=== PATIENT | male | born 1950 | race Caucasian/White ===

== ENCOUNTER 2020-12-15 13:58 | Outpatient (CLI) | payer MEDICARE, SELFPAY ==
--- NOTE | ~2020-12-15 | US_ITS ---
EXAMINATION: US carotid duplex BI DATE: 12/15/2020 14:30 INDICATION: Carotid stenosis TECHNIQUE: Grayscale, color Doppler, and pulsed Doppler images of the cervical carotid arteries were obtained. The degree of vessel stenosis is placed in one of the following categories: normal, <50%, 5 0-69%, >=70% but less than near-occlusion, near-occlusion, or total occlusion. Note that percent sten osis relative to normal distal artery lumen diameter is indirectly measured from velocity measurement s as described by Caio, et al. Radiology 2003; [id number]. COMPARISON: 05/06/2014 FINDINGS: RIGHT: The right common carotid artery (CCA) peak systolic velocity (PSV) is 85 cm/s. The right internal car otid artery (ICA) PSV is 105 cm/s. The right ICA end-diastolic velocity (EDV) is 24 cm/s. The right I CA/CCA PSV ratio is 1.2. Grayscale and color Doppler images yield an estimate of <50% diameter reduct ion from plaque in the ICA. The external carotid artery (ECA) PSV is 128 cm/s. There is antegrade tom w in the right vertebral artery. LEFT: The left CCA PSV is 116 cm/s. The left ICA PSV is 100 cm/s. The left ICA EDV is 25 cm/s. The left ICA /CCA PSV ratio is 0.9. Grayscale and color Doppler images yield an estimate of <50% diameter reductio n from plaque in the ICA. The ECA PSV is 132 cm/s. There is antegrade flow in the left vertebral nahum ry. IMPRESSION: 1. <50% stenosis in the right internal carotid artery. 2. <50% stenosis in the left internal carotid artery. Reviewed, dictated and finalized at location A.
== END 2020-12-15 13:59 | disposition home or self-care (01) ==
LOC: CHSIMG 14:04
PROVIDERS: PCP Internal Medicine; Visit Provider Internal Medicine
DX: I65.23 Occlusion and stenosis of bilateral carotid arteries (principal)
CPT/HCPCS: 93880

== ENCOUNTER 2021-01-26 08:50 | Outpatient (CLI) | payer MEDICARE, SELFPAY | END 2021-01-26 08:51 | disposition home or self-care (01) | LOC: CHSAUDIO 08:52 | PROVIDERS: PCP Internal Medicine; Visit Provider Otolaryngology | DX: H65.91 Unspecified nonsuppurative otitis media, right ear (principal) | CPT/HCPCS: 92557; 92567 ==

== ENCOUNTER 2022-11-01 07:08 | Outpatient (CLI) | payer MEDICARE, SELFPAY ==
--- NOTE | ~2022-11-01 | US_ITS ---
EXAMINATION: US retroperitoneal duplex ltd DATE: 11/01/2022 07:48 INDICATION: Hypertension. TECHNIQUE: Multiple grayscale, color Doppler, and pulsed Doppler images of the kidneys and renal nahum puma were obtained. COMPARISON: None. FINDINGS: The aorta peak systolic velocity is 81 cm/s. The right renal artery peak systolic velocity is 108 cm/ s in the proximal segment, 129 cm/s in the mid segment, and 78 cm/s in the distal segment. The left r enal artery peak systolic velocity is 81 cm/s in the proximal segment, 68 cm/s in the mid segment, an d 76 cm/s in the distal segment. There are cysts in left kidney measuring up to 3.4 cm. IMPRESSION: 1. No Doppler evidence of renal artery stenosis. Reviewed, dictated and finalized at location A.
== END 2022-11-01 07:09 | disposition home or self-care (01) ==
LOC: CHSIMG 07:09
PROVIDERS: PCP Internal Medicine; Visit Provider Internal Medicine
DX: R94.4 Abnormal results of kidney function studies (principal); I10 Essential (primary) hypertension
CPT/HCPCS: 93976

== ENCOUNTER 2022-11-13 12:03 | Outpatient (CLI) | payer MEDICARE, SELFPAY ==
--- NOTE | ~2022-11-13 | US_ITS ---
EXAMINATION: US retroperitoneal comp DATE: 11/13/2022 12:35 INDICATION: Elevated creatinine TECHNIQUE: Multiple ultrasound grayscale images of the kidneys were obtained. COMPARISON: None. FINDINGS: The right kidney measures 10.0 x 5.0 x 4.4 cm. The left kidney measures 10.4 x 4.3 x 4.9 cm. The kidn eys demonstrate normal echogenicity. 3.5 similar anechoic cyst at the lower pole of the left kidney. There is no hydronephrosis in either kidney. No stones identified. The bladder is normal. Prostatome devaughn measuring 4.8 x 4.5 x 4.2 cm. IMPRESSION: 1. 3.5 cm left renal cyst. Otherwise normal kidneys without hydronephrosis. 2. Prostatomegaly. Reviewed, dictated and finalized at location B.
== END 2022-11-13 12:04 | disposition home or self-care (01) ==
LOC: CHSIMG 12:04
PROVIDERS: PCP Internal Medicine; Visit Provider Internal Medicine
DX: R94.4 Abnormal results of kidney function studies (principal); N28.1 Cyst of kidney, acquired; N40.0 Benign prostatic hyperplasia without lower urinary tract symptoms
CPT/HCPCS: 76770

== ENCOUNTER 2024-01-01 09:33 | Outpatient (CLI) | payer MEDICARE, SELFPAY ==
--- NOTE | ~2024-01-01 | CT_ITS ---
EXAMINATION:CT lung screening DATE: 01/01/2024 10:02 INDICATION: Personal history of nicotine dependence. Smoker who quit 3 years ago with 30 pack year hi story. TECHNIQUE: Computed tomography (CT) of the chest was performed without intravenous contrast. Automate d exposure control and iterative reconstruction technique were employed. The dose-length product (DLP ) was 96.41 mGy-cm. COMPARISON: None. FINDINGS: There is mild scarring at the lung apices. There is mild emphysema. There is mild atelectas is bilaterally. There is mild bronchiectasis in the inferior lungs. There is a 7 mm part solid nodule in right lower lobe. There is a 6 mm nodule in left lower lobe. Calcified right lung nodules and tasha cified right hilar and mediastinal lymph nodes are consistent with old granulomatous disease. No pleu ral effusion. The heart size is normal. There are coronary artery calcifications. No pericardial effu emiliano. There is diffuse hepatic steatosis. There is mild thoracic spondylosis. IMPRESSION: 1. Lung-RADS category 3: Probably benign. Further evaluation is recommended with noncontrast low-dose chest CT in 6 months. Reviewed, dictated and finalized at location A. IMPRESSION: 1. Lung-RADS category 3: Probably benign. Further evaluation is recommended wit h noncontrast low-dose chest CT in 6 months.
== END 2024-01-01 09:34 | disposition home or self-care (01) ==
PROVIDERS: PCP Internal Medicine; Visit Provider Internal Medicine
DX: Z12.2 Encounter for screening for malignant neoplasm of respiratory organs (principal); Z87.891 Personal history of nicotine dependence
CPT/HCPCS: 71271

== ENCOUNTER 2024-01-28 06:54 | Day surgery (SDC) | payer MEDICARE, SELFPAY ==
[2024-01-08 08:29] VITALS: BMI 25.4
[2024-01-11 10:27] VITALS: BMI 23.7
--- NOTE | 2024-01-28 06:49 | P.PNAN_ITS ---
Anes - Initial Pre Proc Eval Procedure: Operation Date: 01/28/24 08:30 Proposed Procedures p Screening Colonoscopy - Arnie Mitchell DO Date/Time: 01/28/24 06:49 Surgeon: Arnie Mitchell DO Pre Op Diagnosis: History of Colon Polyp Patient Data Age: 73 Gender: M Height: 1.78 m Weight: 75 kg Allergies Allergy/AdvReac Type Severity Reaction Status Date / Time shellfish derived Allergy Mild unknown Verified 01/28/24 07:31 Home Medications Medication Instructions Recorded Confirmed Type aspirin 81 mg tablet,delayed 81 mg PO DAILY 10/23/19 01/28/24 History release metformin 500 mg tablet,extended 500 mg PO DAILY 10/23/19 01/28/24 History release 24 hr simvastatin 20 mg tablet 20 mg PO DAILY 10/23/19 01/28/24 History glimepiride 2 mg tablet 2 mg PO DAILY 01/11/24 01/28/24 History losartan 50 mg tablet 50 mg PO DAILY 01/11/24 01/28/24 History multivitamin with minerals-folic 1 tablet PO DAILY 01/11/24 01/28/24 History acid 0.4 mg tablet tamsulosin 0.4 mg capsule 0.4 mg PO DAILY 01/11/24 01/28/24 History Patient hx anesthesia problems: none Family hx anesthesia problems: none Results Review: All pre-operative results and documents have been reviewed as part of the pre- operative evaluation. [facility] Past Medical History Medical History (Updated 01/28/24 @ 08:47 by Arnie Mitchell DO) AAA (abdominal aortic aneurysm) Diabetes type 2, controlled Hyperlipidemia Hypertension Surgical History Surgical History (Updated 01/28/24 @ 06:50 by Shiv Dozier DO) Hx of CABG 2016 Social History Social History (Updated 12/21/20 @ 13:54 by Katt Cervantes) Smoking status: Former smoker Tobacco type: cigarettes Alcohol intake: current Drinks per week: 1 Alcohol use details: 3 per month Substance use: never Substance use type: does not use Living arrangements: with family Spiritual care concerns: No Anes - Eval Final PreProcedure Day of Procedure 01/28/24 06:49 Patient weight: normal Heart: regular rate and rhythm Lungs: clear to auscultation and normal air movement Airway: Mallampati scale class II Neurological: alert and oriented Last oral intake: >/= 8 hours ASA classification: III Emergent: no Anesthetic plan: proceed Anesthesia type and monitoring: general GIVS and standard monitoring Results Review: All pre-operative results and documents have been reviewed as part of the pre- operative evaluation. Informed Consent: The patient's anesthetic plan and its attendant risks and benefits were discussed with the patient/family/POA. Questions were solicited and answers provided to the satisfaction of the patient/family/POA.
[2024-01-28] MEDS: LACTATED RINGERS 1,000 ML 150 ML IV CONT (07:33)
[2024-01-28 07:45] VITALS: BP 169/76; PULSE 58; RESP 18; TEMP 36.7; O2SAT 99
[2024-01-28 07:56] LABS: Glucose Point of Care 107 mg/dl (65-105)
--- NOTE | 2024-01-28 08:46 | PM.IMHP ---
H&P: HPI History of Present Illness Date/Time: 01/28/24 08:46 Chief Complaint: hx of polyps Narrative: 73 yo man presents for colonoscopy. Last done 5 years ago and polyps removed. Denies hematochezia/melena. No fam hx colon cancer. Review of Systems Review of Systems: All systems reviewed & are unremarkable except as noted in HPI and below Constitutional: Constitutional: Denies chills, Denies fever(s), Denies headache(s) and Denies weight loss Eyes: Eyes: Denies change in vision ENT: Denies dizziness, Denies headache(s), Denies neck mass and Denies throat swelling Cardiovascular: Cardiovascular: Denies chest pain, Denies lightheadedness and Denies dyspnea Respiratory: Respiratory: Denies cough, Denies dyspnea and Denies wheezing Gastrointestinal: Gastrointestinal: Denies abdominal pain, Denies change in bowel habits, Denies nausea and Denies vomiting Genitourinary: Genitourinary: Denies hematuria and Denies dysuria Musculoskeletal: Musculoskeletal: Reports as per HPI Integumentary/Breasts: Skin/Breast: Reports as per HPI Neurologic: Denies dizziness and Denies headache(s) Allergic/Immunologic: Allergic/Immunologic: Denies throat swelling and Denies wheezing COUNT INCLUDES THE [facility] Past Medical History Medical History (Updated 01/28/24 @ 08:47 by Arnie Mitchell DO) AAA (abdominal aortic aneurysm) Diabetes type 2, controlled Hyperlipidemia Hypertension Surgical History Surgical History (Updated 01/28/24 @ 06:50 by Shiv Dozier DO) Hx of CABG 2016 Social History Social History (Updated 12/21/20 @ 13:54 by Katt Cervantes) Smoking status: Former smoker Tobacco type: cigarettes Alcohol intake: current Drinks per week: 1 Alcohol use details: 3 per month Substance use: never Substance use type: does not use Living arrangements: with family Spiritual care concerns: No Meds Home Medications and Allergies Home Medications Medication Instructions Recorded Confirmed Type aspirin 81 mg tablet,delayed 81 mg PO DAILY 10/23/19 01/28/24 History release metformin 500 mg tablet,extended 500 mg PO DAILY 10/23/19 01/28/24 History release 24 hr simvastatin 20 mg tablet 20 mg PO DAILY 10/23/19 01/28/24 History glimepiride 2 mg tablet 2 mg PO DAILY 01/11/24 01/28/24 History losartan 50 mg tablet 50 mg PO DAILY 01/11/24 01/28/24 History multivitamin with minerals-folic 1 tablet PO DAILY 01/11/24 01/28/24 History acid 0.4 mg tablet tamsulosin 0.4 mg capsule 0.4 mg PO DAILY 01/11/24 01/28/24 History Allergies Allergy/AdvReac Type Severity Reaction Status Date / Time shellfish derived Allergy Mild unknown Verified 01/28/24 07:31 Vital Signs Vital Signs - 24 hr 01/28/24 07:45 Temperature 98.0 F Pulse Rate 58 L Respiratory Rate 18 Blood Pressure 169/76 H Pulse Oximetry 99 Oxygen Delivery Room Air Exam Const: General: no acute distress and alert Orientation/consciousness: patient oriented x3 HENMT: Head: normocephalic and atraumatic Ears: hearing grossly normal bilaterally Face/Nose/Sinus: Normal nares present Mouth: Yes Normal oral and palatal mucosa present Eyes: Periorbital: periorbital findings normal Sclera: sclerae normal EOM: EOMs intact bilaterally Neck: Neck: normal visual inspection, no lymphadenopathy and trachea midline Chest: Chest palpation & inspection: normal inspection of the chest Resp: Effort & Inspection: normal respiratory effort Auscultation: clear to auscultation bilaterally Cardio: Jugular venous distension: no JVD Rate: regular rate Rhythm: regular rhythm Heart sounds: S1 normal heart sound present and S2 normal heart sound present Peripheral pulses: Peripheral pulses 2+ throughout GI: Inspection: normal to inspection GI Palp: Yes Soft to palpation, No Tenderness to palpation present (GI), No Guarding due to palpation present (GI) and No Rebound tenderness present Percussion: Yes normal to percussion Auscultation: no
[2024-01-28 09:19] VITALS: BP 101/58; PULSE 58; RESP 14; O2SAT 98
[2024-01-28 09:29] VITALS: BP 97/57; PULSE 58; RESP 14; O2SAT 97
[2024-01-28 09:39] VITALS: BP 109/62; PULSE 55; RESP 16; O2SAT 98
--- NOTE | 2024-01-28 11:29 | WPDANESPN ---
Anes - Prog Note Post-Op Date/Time: 01/28/24 11:29 Cardiovascular status: normal Respiratory status: normal Airway patency: baseline Mental status: baseline Post-Op hydration status: normal Vital Signs: Last Vital Signs Temp 36.7 C 01/28/24 07:45 Pulse 55 L 01/28/24 09:39 Resp 16 01/28/24 09:39 BP 109/62 01/28/24 09:39 Pulse Ox 98 01/28/24 09:39 O2 Del Method Room Air 01/28/24 09:39 Pain Score (VAS): 0 I/O: Intake & Output 01/27/24 01/28/24 01/28/24 23:59 07:59 15:59 Intake Total 600 Balance 600 01/28/24 07:51 POC Capillary Glucose 107 H Post-procedural complaints: none Patient Feedback: Patient satisfied with anesthetic care. Other Findings: Patient vital signs back to baseline. Patient denies nausea and vomiting. Patient's pain under control. Patient OK for discharge.
== END 2024-01-28 10:05 | disposition home or self-care (01) ==
PROVIDERS: PCP Internal Medicine; Visit Provider Surgery
PROC: 0DJD8ZZ Inspection of Lower Intestinal Tract, Via Natural or Artificial Opening Endoscopic (ICD-10-PCS; CPT 45378; principal; 2024-01-28 08:30)
DX: Z86.0100 Personal history of colon polyps, unspecified (principal); K57.30 Diverticulosis of large intestine without perforation or abscess without bleeding; K64.8 Other hemorrhoids
CPT/HCPCS: G0105

== ENCOUNTER 2024-01-31 07:18 | Outpatient (CLI) | payer MEDICARE, SELFPAY ==
--- NOTE | ~2024-01-31 | US_ITS ---
EXAMINATION: US renal BI, US retroperitoneal duplex ltd DATE: 01/31/2024 08:00 INDICATION: Chronic kidney disease TECHNIQUE: 1. Multiple grayscale and color Doppler images of the kidneys were obtained. 2. Multiple grayscale and pulsed Doppler images of the aorta and renal arteries were obtained. COMPARISON: None. FINDINGS: Kidneys: The right kidney measures 9.8 x 5.7 x 6.5 cm. The left kidney measures 10.7 x 4.5 x 5.9 cm. The kidne ys demonstrate normal echogenicity. 4.0 cm anechoic cyst at the lower pole of the left kidney. There is no hydronephrosis in either kidney. No stones identified. The bladder is normal. Prostatomegaly m easuring 5.5 x 5.2 x 5.1 cm. Diffuse hepatic steatosis. Renal arteries/vascular: The aorta peak systolic velocity is 49 cm/s. The right renal artery peak systolic velocity is 104 cm/ s in the proximal segment, 97 cm/s in the mid segment, and 72 cm/s in the distal segment. The left re nal artery peak systolic velocity is 68 cm/s in the proximal segment, 68 cm/s in the mid segment, and 42 cm/s in the distal segment. IMPRESSION: 1. 4.0 cm left renal cyst. Otherwise normal kidneys with no hydronephrosis. 2. No Doppler evidence of renal artery stenosis. 3. Prostatomegaly. 4. Hepatic steatosis. Reviewed, dictated and finalized at location A. IMPRESSION: 1. 4.0 cm left renal cyst. Otherwise normal kidneys with no hydronephrosis. 2. No Doppler evidence of renal artery stenosis. 3. Prostatomegaly. 4. Hepatic steatosis.
== END 2024-01-31 07:19 | disposition home or self-care (01) ==
LOC: CHSIMG 07:20
PROVIDERS: PCP Internal Medicine; Visit Provider Internal Medicine
DX: N18.30 Chronic kidney disease, stage 3 unspecified (principal); I70.1 Atherosclerosis of renal artery; N28.1 Cyst of kidney, acquired; N40.0 Benign prostatic hyperplasia without lower urinary tract symptoms; K76.0 Fatty (change of) liver, not elsewhere classified
CPT/HCPCS: 76775; 93976

== ENCOUNTER 2024-08-20 09:18 | Outpatient (CLI) | payer MEDICARE, SELFPAY ==
--- NOTE | ~2024-08-20 | US_ITS ---
Procedure: Duplex Doppler examination of the bilateral carotids. Indication: Carotid stenosis Technique: Real time, color-flow and pulse wave Doppler examination of the bilateral carotids was performed. Findings: Carlson scale ultrasonography of the right neck demonstrated moderate to advanced plaque at the carotid bifurcation and proximal right internal carotid artery. There was demonstration of normal color-flow and Doppler waveforms within the right common, internal and external carotid arteries. The peak systo lic velocities in the right common, internal and external carotid arteries were demonstrated to be 94 cm/sec, 101 cm/sec and 156 cm/sec respectively. The right ICA/CCA ratio was 1.1.The proximal right i nternal carotid artery demonstrates 0% stenosis relative to the normal distal artery lumen diameter. Carlson scale sonography of the left neck demonstrated moderate plaque at the left carotid bifurcation. There was demonstration of normal color-flow and wave forms within the left common, internal and exte rnal carotid arteries. The peak systolic velocities in the left common, internal and external carotid arteries were demonstrated to be 105cm/sec, 96 cm/sec and 133 cm/sec respectively. The left ICA/CCA ratio was 0.9. The proximal left internal carotid artery demonstrates 0% stenosis relative to the nor mal distal artery lumen diameter. There was antegrade flow demonstrated in the bilateral vertebral arteries. Impression: No hemodynamically significant stenosis of the bilateral internal carotid arteries. Antegrade flow in the bilateral vertebral arteries. Note: The methodology used is an indirect measurement validated against a direct method (such as the NASCET criteria) that compares diameters at the stenosis to the distal ICA. Reviewed, dictated and finalized at location . Impression: No hemodynamically significant stenosis of the bilateral internal carotid arter ies. Antegrade flow in the bilateral vertebral arteries. Note: The methodology used is an indirect measurement validated against a direct meth od (such as the NASCET criteria) that compares diameters at the stenosis to the distal ICA.
--- OUTSIDE RECORDS SUMMARY | 2024-08-20 09:46 | XMS_ITS | Clinical Summary ---
Author Organization [facility] Address [address] [place] [address] Care Team Providers Care Snack Bar Attendant Name Role Phone Li Tay MD Primary Care Provider + [phone] Allergies Active Allergy Reactions Criticality Noted Date Comments Prochlorperazine Other (See comments) Low Reaction: DIARRHEA;, Shellfish Nausea And Vomiting 10/21/2015 Shellfish Containing Products Diarrhea,Vomiting Medium 12/25/2017 Medications aspirin 81 mg tablet Active tamsulosin (FLOMAX) 0.4 mg extended release capsule Take 1 capsule (0.4 mg total) by mouth daily 3 Active amLODIPine (NORVASC) 5 mg tablet Take 1 tablet (5 mg total) by mouth daily 5 Active Tradjenta 5 mg tablet Take 1 tablet (5 mg total) by mouth daily 5 Active cyanocobalamin (Vitamin B-12) 1,000 mcg tabletIndicatio ns:Prevention of Vitamin B12 Deficiency Take 1 tablet (1,000 mcg total) by mouth daily Active multivitamin tabletIndicatio ns:Vitamin Deficiency Prevention Take 1 tablet by mouth Active atorvastatin (Lipitor) 40 mg tablet Take 1 tablet (40 mg total) by mouth nightly 90 tablet 3 5 Active glimepiride (AMARYL) 4 mg tabletIndicatio ns:type 2 diabetes mellitus Take 2 tablets (8 mg total) by mouth daily before breakfast Active Hospital, Clinic, or Other Facility Administered Medication Ordered Dose Route Frequency Start Date End Date Status perflutren protein-a (OPTISON) 3 mL in sodium chloride 0.9% 8 mL syringe 1 - 8 mL IV Once in imaging 06/12/2024 Active Active Problems Problem Noted Date Diagnosed Date Atherosclerosis of choctaw ar teries of extremities with intermittent claudication, left leg 06/19/2023 Encounter for surgical after care following surgery on the circulatory system 05/30/2016 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/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 12/17/2015 PVD (peripheral vascular disease) 10/21/2015 Encounters Date Type Department Care Team Description 07/01/2024 11:15 AM CDT Office Visit [facility] Vascular Surgery [address] [place] [address] 3 [address] [place] [id number] Idris Perez NP Encounter for surgical aftercare following surgery on the circulatory system (Primary Dx) 07/01/2024 10:15 AM CDT Ancillary Procedure [facility] Vascular Lab Vascular Surgery [address] [place] [address] 3, [address] [place] [id number] Atherosclerosis of choctaw arteries of extremities with intermittent claudication, left leg 06/12/2024 3:00 PM SPINNING MULE TENDER Ancillary Procedure [facility] [address] [place] [address] 3 [address] [place] [id number] Hypertension, unspecified type 06/12/2024 1:30 PM SPINNING MULE TENDER Office Visit [facility] Cardiology [address] [place] [address] Office [facility] [address] [place] [id number] Wellington Linares MD Coronary artery disease involving choctaw coronary artery of choctaw heart without angina pectoris (Primary Dx); PVD (peripheral vascular disease); Hypertension, unspecified type; Hyperlipidemia, unspecified hyperlipidemia type 06/12/2024 Results Follow-Up [facility] Cardiology [address] [place] [address] 3 [address] [place] [id number] Wellington Linares MD from Last 3 Months Medical History Medical History Date Comments Diabetes mellitus (HCC) Family History Medical History Relation Name Comments No Known Problems Father No Known Problems Mother Relation Name Status Comments Father Mother Social History Tobacco Use Types Packs/Day Years Used Date Smoking Tobacco: Former Smokeless Tobacco: Never Tobacco Cessation:Counseling Given: Not Answered Alcohol Use Standard Drinks/Week Comments Not Currently 0 (1 standard drink = 0.6 oz pur e alcohol) AUDIT-C Answer Date Recorded Q1: How often do you have a drink containing alc ohol? Monthly or less 01/05/2023 Average Number of Drinks Not on file 023 Frequency of Binge Drinking Not on file 12/16 Sex and Gender Information Value Date Recorded Sex Assigned at Not on file Legal Sex Male 8:16 AM SPINNING MULE TENDER Gender Identity Not on file Sexual Orientation Straight 12/31/2018 10 :17 AM CDT Obstetrics History Last Filed Vital Signs Vital Sign Reading Time Taken Comments Blood Pressure 166/78 07/01/2024 10:49 AM CDT Pulse 66 07/01/2024 10:49 AM CDT Temperature 36.9 C (98.5 F) 06/19/2023 11:28 AM SPINNING MULE TENDER Respiratory Rate - - Oxygen Saturation 100% 07/01/2024 10:49 AM CDT Inhaled Oxygen Concentration - - Weight 76.2 kg (168 lb) 07/01/2024 10:49 AM CDT Height 177.8 cm (5' 10 ) 07/01/2024 10:49 AM CDT Body Mass Index 24.11 07/01/2024 10:49 AM CDT Plan of Treatment Health Maintenance Due Date Last Done Comments Colon Cancer Screening-Colonoscopy 1950 Depression Screening 1950 Fall Risk Assessment 1950 Hepatitis C Screening 1950 Hepatitis B Screening 1968 Well Visit 65+ 2015 Covid-19 Vaccine (2023-2 5 season) 2023 06/25/2020, 06/04/2020 Influenza Vaccine (Season Ended) 2024 01/19/2021, 01/15/2020, 12/25/2018, Additional history exists DTaP/Tdap/Td Vaccine (2 - Td or Tdap) 07/26/2025 07/27/2015 Abdominal Aortic Aneurysm (A AA) Screen Completed 05/18/2016, 05/18/2016, 05/05/2016, Additional history exists Colon Cancer Screening-CT Colonography Discontinued 05/19/2016 Colon Cancer Screening-DNA Stool Discontinued 05/19/19 Colon Cancer Screening-FIT Discontinued 05/19/2016 Colon Cancer Screening-Sigmoidoscopy Discontinued 05/19/2016 Pneumococcal vaccine 65+ Completed 11/30/2017, 01/15 Zoster Vaccine Completed 04/19/2018, 11/14, 07/27/2015 Procedures Procedure Name Priority Date/Time Associated Diagnosis Comments COPY(IES) SENT TO: Routine 08/05/2024 9: 02 AM CDT LIPID PANEL Routine 08/05/2024 9:02 AM CDT Hyperlipidemia, unspecified hyperlipidemia type US ARTERIAL DOPPLER LOWER EXTREMITY BILATERAL Schedule Routine, Read Routine (OP Routine) 07/01/2024 10:50 AM CDT Atherosclerosis of choctaw arteries of extremities with intermittent claudication, left leg TRANSTHORACIC ECHO (TTE) COMPLETE W DOPPLER/CF WO CONTRAST Routine 06/12/2024 3:16 PM SPINNING MULE TENDER Hypertension, unspecified type ECG 12-LEAD Routine 06/12/2024 1:07 PM SPINNING MULE TENDER PVD (peripheral vascular disease) FLEXIBLE SIGMOIDOSCOPY REPORT 05/19/2016 CTA ABDOMINAL AORTA AND BILATERAL ILIOFEMORAL RUNOFF Routine 01/03/2016 11:59 AM CDT from Last 3 Months or Most Recently Relevant to Health Maintenance Results * COPY(IES) SENT TO: (08/05/2024 9:02 AM CDT) COPY(IES) SENT TO: [facility] Comment: [place] [address] [place] [address] 08/05/2024 9:02 AM CDT 08/05/2024 9:03 AM CDT Narrative [facility] - 08/06/2024 3:56 AM CDT FASTING:YES FASTING: YES Wellington Linares MD LAB BLOOD ORDERABLES Final R esult [facility] * (ABNORMAL) Lipid panel (08/05/2024 9:02 AM CDT) Pathologist [facility] Cholesterol 115 <200 mg/dL [facility] HDL 27(L) > OR = 40 mg/dL [facility] Triglycerides 149 <150 mg/dL [facility] LDL 65 mg/dL (calc) [facility] Comment: Reference range: <100 Desirable range <100 mg/dL for primary prevention; <70 mg/dL for patients with CHD or diabetic patients with > or = 2 CHD risk factors. LDL-C is now calculated using the Maxim-Roderick calculation, which is a validated novel method providing better accuracy than the Friedewald equation in the estimation of LDL-C. Maxim SS et al. KUSHAL. 2013;310(19): 1758-2279 (http://education.[employer].VideoMining/faq/UYF287) Chol/HDL ratio 4.3 <5.0 (calc) [facility] Non-HDL, (LDL+VLDL) 88 <130 mg/dL (calc) [facility] Comment: For patients with diabetes plus 1 major ASCVD risk factor, treating to a non-HDL-C goal of <100 mg/dL (LDL-C of <70 mg/dL) is considered a therapeutic option. Blood 08/05/2024 9:02 AM CDT 08/05/2024 9:03 AM CDT Narrative [facility] - 08/06/2024 3:56 AM CDT FASTING:YES FASTING: YES Wellington Linares MD LAB BLOOD ORDERABLES Final R esult [facility] [id number] [place] [id number] * US Arterial Doppler Lower Extremity Bilateral (07/01/2024 10:50 AM CDT) Anatomical Region Laterality Modality Vascular Bilateral Ultrasound 07/01/2024 10:1 6 AM CDT Narrative 07/01/2024 1:44 PM CDT [facility] - Department of Vascular Surgery, Vascular Laboratory [address] [place], [place] [id number] Lower Extremity Arterial Doppler Report Patient Name: RENAE MENDES : 1950 Study Date: 07/01/2024 10:16:00 AM Gender: M Tech: Nuzhat Martinez RVT Location: [facility] Provider: IDRIS PEREZ Quality: Adequate Order Provider: IDRIS PEREZ PROCEDURES: Arterial Report: Bilateral lower extremity arterial Doppler exam at rest. INDICATIONS: I70.212 Atherosclerosis of choctaw arteries of extremities with intermittent claudication, left leg. MEASUREMENTS: Right Value Units Left Value Units Rt Brachial Pressure 178 mmHg Lt Brachial Pressure 181 mmHg Rt PIPE BLANKS CUT OFF SAW OPERATOR Pressure 96 mmHg Lt PIPE BLANKS CUT OFF SAW OPERATOR Pressure 102 mmHg Rt DPA Pressure 86 mmHg Lt DPA Pressure 95 mmHg Rt 1st Digit Pressure 81 mmHg Lt 1st Digit Pressure 91 mmHg Rt PT REED Resting 0.53 Lt PT REED Resting 0.56 Rt AT REED Resting 0.48 Lt AT REED Resting 0.52 Rt Digit/Arm Index 0.45 Lt Digit/Arm Index 0.5 Right Value Units Left Value Units FINDINGS: Performing Commercial Attorney: Nuzhat Martinez RVT. Right Common Femoral Artery Analysis: The common femoral artery waveform is multiphasic. Right Popliteal Artery Analysis: The popliteal waveform is monophasic. Right Posterior Tibial Artery Analysis: The posterior tibial waveform is monophasic. Right Anterior Tibial Artery Analysis: The anterior tibial waveform is monophasic. Left Common Femoral Artery Analysis: The common femoral artery waveform is multiphasic. Left Popliteal Artery Analysis: The popliteal waveform is multiphasic. Left Posterior Tibial Artery Analysis: The posterior tibial waveform is monophasic. Left Anterior Tibial Artery Analysis: The anterior tibial waveform is monophasic. CONCLUSIONS: 1. The above listed Ankle/Brachial Indicies at rest are consistent with moderate peripheral arterial disease - claudication, bilaterally (for reference, claudication range is 0.50 -0.89). 2. Bilateral Digit/Arm Indices are abnormal (for reference, abnormal ALAINA is <0.6). 3. There is evidence of right leg arterial insufficiency at the level of femoral-popliteal arteries and infrapopliteal arteries. 4. There is evidence of left leg arterial insufficiency at the level of infrapopliteal arteries. HISTORY: PAD, HTN, CHF, Former smoker - PREVIOUS STUDIES: Previous study on 05/23/22 R= 1.22; L= 1.26 - DISCLAIMER: The study images and the final report will be retained in the patient chart by the Vascular Laboratory for the legally required time period. This chart constitutes the legal record of any testing performed. ATTESTATION: I have reviewed and interpreted the pertinent images and measurements of this study. I attest to the conclusions in the final report that is provided above. Electronically Signed By: Ana Lilia Sanz MD [facility] [phone] 07/01/2024 1:10:30 PM CDT Procedure Note Ana Lilia Sanz MD - 07/01/2024 [facility] - Department of Vascular Surgery,Vascular Laboratory [address] [place], [place] [id number] Lower Extremity Arterial Doppler Report Patient Name: RENAE MENDES : 1950 Study Date: 07/01/2024 10:16:00 AM Gender: M Tech: Nuzhat Martinez Lizeth Location: [facility] Provider: IDRIS PEREZ Quality: Adequate Order Provider: IDRIS PEREZ PROCEDURES: Arterial Report: Bilateral lower extremity arterial Doppler exam at rest. INDICATIONS: I70.212 Atherosclerosis of choctaw arteries of extremities withintermittent claudication, left leg. MEASUREMENTS: Right Value Units Left Value Units Rt Brachial Pressure 178 mmHg Lt Brachial Pressure 181 mmHg Rt PIPE BLANKS CUT OFF SAW OPERATOR Pressure 96 mmHg Lt PIPE BLANKS CUT OFF SAW OPERATOR Pressure 102 mmHg Rt DPA Pressure 86 mmHg Lt DPA Pressure 95 mmHg Rt 1st Digit Pressure 81 mmHg Lt 1st Digit Pressure 91 mmHg Rt PT REED Resting 0.53 Lt PT REED Resting 0.56 Rt AT REED Resting 0.48 Lt AT REED Resting 0.52 Rt Digit/Arm Index 0.45 Lt Digit/Arm Index 0.5 Right Value Units Left Value Units FINDINGS: Performing Commercial Attorney: Nuzhat Martinez RVT. Right Common Femoral Artery Analysis: The common femoral artery waveform is multiphasic. Right Popliteal Artery Analysis: The popliteal waveform is monophasic. Right Posterior Tibial Artery Analysis: The posterior tibial waveform is monophasic. Right Anterior Tibial Artery Analysis: The anterior tibial waveform is monophasic. Left Common Femoral Artery Analysis: The common femoral artery waveform is multiphasic. Left Popliteal Artery Analysis: The popliteal waveform is multiphasic. Left Posterior Tibial Artery Analysis: The posterior tibial waveform is monophasic. Left Anterior Tibial Artery Analysis: The anterior tibial waveform is monophasic. CONCLUSIONS: 1. The above listed Ankle/Brachial Indicies at rest are consistent withmoderate peripheral arterial disease - claudication, bilaterally (for reference,claudication range is 0.50 -0.89). 2. Bilateral Digit/Arm Indices are abnormal (for reference, abnormal DAIis <0.6). 3. There is evidence of right leg arterial insufficiency at the level of femoral-popliteal arteries and infrapopliteal arteries. 4. There is evidence of left leg arterial insufficiency at the level ofinfrapopliteal arteries. HISTORY: PAD, HTN, CHF, Former smoker - PREVIOUS STUDIES: Previous study on 05/23/22 R= 1.22; L= 1.26 - DISCLAIMER: The study images and the final report will be retained in the patientchart by the Vascular Laboratory for the legally required time period. This chartconstitutes the legal record of any testing performed. ATTESTATION: I have reviewed and interpreted the pertinent images and measurements ofthis study. I attest to the conclusions in the final report that is provided above. Electronically Signed By: Ana Lilia Sanz MD [facility] [phone] 07/01/2024 1:10:30 PM CDT us Idris Perez NP IMG US PROCEDURES Final Result * TRANSTHORACIC ECHO (TTE) COMPLETE W DOPPLER/CF WO CONTRAST (06/12/2024 3:16 PM SPINNING MULE TENDER) Anatomical Region Laterality Modality Ultrasound 06/12/2024 2:48 PM SPINNING MULE TENDER Narrative 06/13/2024 8:50 AM SPINNING MULE TENDER [facility] Cardiac Diagnostic Lab [address] , [address] [place] [address] Transthoracic Echocardiographic Report Patient Name: RENAE MENDES : 1950 (74y 1m) Gender: M Study Date: 06/12/2024 14:48:46 Ht(Inch): 70 Wt(Lb): 167.99 BSA: 1.94 Commercial Attorney: Tahira Cervantes RDCS, RCCS Location: [facility] Order Provider: MIKWELLINGTON NAPOLES BMI: 24.1 Quality: The study images were of technically good quality. Ref Provider: WELLINGTON LINARES PROCEDURES: Echocardiographic Report: ([id number]) Transthoracic complete echo, 2D, spectral and tissue Doppler, color flow Doppler, M-mode. Additional Procedures: Myocardial strain imaging was performed. INDICATIONS: I10 Essential (primary) hypertension. FINDINGS: Left Ventricle: Normal left ventricular size based on volume index. Normal left ventricular systolic function. The Ejection Fraction (Bynum's) is measured at 60 %. Left ventricular diastolic parameters are consistent with Grade I diastolic dysfunction (normal LA pressure). The average global longitudinal strain rate is abnormal. The LV global strain is: -14.8 %. No left ventricular thrombus visualized. Right Ventricle: Normal right ventricular size. Normal right ventricular systolic function. Left Atrium: The left atrium is normal in size. Right Atrium: The right atrium is normal in size. Mitral Valve: There is moderate mitral valve regurgitation. No stenosis present. MV Structure Abnormalities: Mitral valve leaflets appear mildly thickened. Aortic Valve: Trileaflet aortic valve. The aortic cusps appear mildly thickened with more diffuse thickening of the non coronary cusp. No aortic regurgitation seen. No aortic valve stenosis. The mean transaortic gradient is 3.64 mmHg. The aortic valve area by the continuity equation (using VTI) is 2.64 cm2. Tricuspid Valve: The tricuspid valve demonstrates normal leaflet structure. There is mild tricuspid regurgitation. Normal estimated pulmonary artery systolic pressure. No tricuspid valve stenosis. Pulmonic Valve: The pulmonic valve demonstrates normal leaflet structure. No evidence of pulmonic regurgitation. No pulmonic valve stenosis present. Pericardium: Normal pericardium without evidence of pericardial effusion. Aorta: The aortic root is normal in size. The aortic root is normal in size when indexed. Rhythm: The rhythm during the study was normal sinus rhythm. CONCLUSIONS: 1. Normal left ventricular size based on volume index. Normal left ventricular systolic function. The Ejection Fraction (Bynum's) is measured at 60 %. Left ventricular diastolic parameters are consistent with Grade I diastolic dysfunction (normal LA pressure). The average global longitudinal strain rate is abnormal. The LV global strain is: -14.8 %. No left ventricular thrombus visualized. 2. Normal right ventricular size. Normal right ventricular systolic function. 3. Normal biatrial size. 4. Nonspecific thickening of the mitral valve with no evidence for mitral stenosis. Moderate mitral insufficiency. 5. Nonspecific thickening of the aortic valve with no stenosis or insufficiency. 6. Mild tricuspid insufficiency with normal estimated pulmonary artery systolic pressure. 7. Normal pulmonic valve. 8. No pericardial effusion. 9. Normal aortic root when indexed to body surface area. MEASUREMENTS: 2D/MM Value Range Doppler Value Range LVIDd 2D 4.77 cm [ 4.20 - 5.80 ] AV Peak Deonte 1.42 m/s [ 1.00 - 1.70 ] LVIDs 2D 3.46 cm [ 2.50 - 4.00 ] AV Peak PG 8.07 IVSd 2D 1.24 cm [ 0.60 - 1.00 ] AV Mean PG 3.64 mmHg LVPWd 2D 1.19 cm [ 0.60 - 1.00 ] AV VTI 26.98 cm LV Thickness Ratio 1.04 LVOT Peak Deonte 1.28 m/s [ 0.70 - 1.10 ] LV FS 2D 27.51 % [ 25.00 - 43.00 ] LVOT Peak PG 6.55 LV Mass 2D 224.32 g LVOT Mean PG 2.55 mmHg LV Mass Index 2D 115.63 g/m2 LVOT VTI 22.02 cm RWT 0.50 LVOT Diam 2.03 cm EDV Mod BP 121.33 ml [ 62.00 - 150.00 ] DOT VTI 2.64 cm2 LV EDV Index 62.54 ml/m2 LVOT/AV VTI 0.82 - Dimensionless index (DVI) ESV Mod BP 48.46 ml [ 21.00 - 61.00 ] MV E Peak Deonte 0.62 m/s [ 0.60 - 1.30 ] EF Mod BP 60 % [ 52 - 72 ] MV A Peak Deonte 0.78 m/s [ 1.00 - 1.20 ] LV GLS -14.8 % [ -18.0 - -16.0 ] MV E/A 0.80 ratio [ 0.80 - 1.50 ] LA Length 2C 4.78 cm MV Peak Deonte 0.53 m/s LA Length 4C 4.79 cm MV Peak PG 1.12 LA Volume BP 43.24 ml MV Mean PG 0.41 mmHg LA Volume Index 22.29 ml/m2 [ 16.00 - 34.00 ] MV VTI 14.93 cm MV Annulus 2D 2.77 cm MV Decel Time 222.11 msec [ 104.00 - 258.00 ] RV Base Dimen 2D 3.5 cm [ 2.5 - 4.2 ] Med E` Deonte 6.34 cm/sec [ 8.00 - 15.00 ] TAPSE 1.78 cm [ 1.71 - 5.00 ] Lat E` Deonte 9.21 cm/sec [ 10.00 - 15.00 ] RA Volume 29.03 ml Average E/E` 7.97 RA Volume Index 14.96 ml/m2 RV S` 9.56 cm/sec AoR Diam 2D 3.38 cm [ 3.10 - 3.70 ] TR Peak Deonte 2.54 m/s [ 1.00 - 2.80 ] Ao Root Index 1.74 cm/m2 [ 1.00 - 2.00 ] TR Peak PG 25.8 PV Peak Deonte 1.24 m/s [ 0.40 - 0.80 ] PV Peak PG 6.15 - ATTESTATION: I have reviewed and interpreted the pertinent images and measurements of this study. I attest to the conclusions in the final report that is provided above. DISCLAIMER: The study images and the final report will be retained in the patient chart by the Echo Laboratory for the legally required time period. This chart constitutes the legal record of any testing performed. Electronically Signed By: Wellington Linares MD 06/13/2024 08:49:56 SPINNING MULE TENDER Electronically Signed By: Wellington Linares MD 06/13/2024 08:49:56 SPINNING MULE TENDER Procedure Note Wellington Linares MD - 06/13/2024 [facility] Cardiac Diagnostic Lab [address] , [address] [place] [address] Transthoracic Echocardiographic Report Patient Name: RENAE MENDES : 1950 (74y 1m) Gender: M Study Date: 06/12/2024 14:48:46 Ht(Inch): 70 Wt(Lb): 167.99 BSA: 1.94 Commercial Attorney: Tahira Cervantes, RD, [facility] Location: [facility] Order Provider:WELLINGTON LINARES BMI: 24.1 Quality: The study images were of technicallygood quality. Ref Provider: WELLINGTON LINARES PROCEDURES: Echocardiographic Report: ([id number]) Transthoracic complete echo, 2D,spectral and tissue Doppler, color flow Doppler, M-mode. Additional Procedures: Myocardial strain imaging was performed. INDICATIONS: I10 Essential (primary) hypertension. FINDINGS: Left Ventricle: Normal left ventricular size based on volume index. Normalleft ventricular systolic function. The Ejection Fraction (Bynum's) ismeasured at 60 %. Left ventricular diastolic parameters are consistent with Grade Idiastolic dysfunction (normal LA pressure). The average global longitudinal strain rate isabnormal. The LV global strain is: -14.8 %. No left ventricular thrombus visualized. Right Ventricle: Normal right ventricular size. Normal right ventricularsystolic function. Left Atrium: The left atrium is normal in size. Right Atrium: The right atrium is normal in size. Mitral Valve: There is moderate mitral valve regurgitation. No stenosispresent. MV Structure Abnormalities: Mitral valve leaflets appear mildly thickened. Aortic Valve: Trileaflet aortic valve. The aortic cusps appear mildlythickened with more diffuse thickening of the non coronary cusp. No aortic regurgitation seen.No aortic valve stenosis. The mean transaortic gradient is 3.64 mmHg. The aorticvalve area by the continuity equation (using VTI) is 2.64 cm2. Tricuspid Valve: The tricuspid valve demonstrates normal leafletstructure. There is mild tricuspid regurgitation. Normal estimated pulmonary artery systolicpressure. No tricuspid valve stenosis. Pulmonic Valve: The pulmonic valve demonstrates normal leaflet structure.No evidence of pulmonic regurgitation. No pulmonic valve stenosis present. Pericardium: Normal pericardium without evidence of pericardialeffusion. Aorta: The aortic root is normal in size. The aortic root is normal insize when indexed. Rhythm: The rhythm during the study was normal sinus rhythm. CONCLUSIONS: 1. Normal left ventricular size based on volume index. Normal leftventricular systolic function. The Ejection Fraction (Bynum's) is measured at 60 %. Leftventricular diastolic parameters are consistent with Grade I diastolic dysfunction(normal LA pressure). The average global longitudinal strain rate is abnormal. The LVglobal strain is: -14.8 %. No left ventricular thrombus visualized. 2. Normal right ventricular size. Normal right ventricular systolicfunction. 3. Normal biatrial size. 4. Nonspecific thickening of the mitral valve with no evidence for mitralstenosis. Moderate mitral insufficiency. 5. Nonspecific thickening of the aortic valve with no stenosis orinsufficiency. 6. Mild tricuspid insufficiency with normal estimated pulmonary arterysystolic pressure. 7. Normal pulmonic valve. 8. No pericardial effusion. 9. Normal aortic root when indexed to body surface area. MEASUREMENTS: 2D/MM Value Range DopplerValue Range LVIDd 2D 4.77 cm [ 4.20 - 5.80 ] AV Peak Vel1.42 m/s [ 1.00 - 1.70 ] LVIDs 2D 3.46 cm [ 2.50 - 4.00 ] AV Peak PG8.07 IVSd 2D 1.24 cm [ 0.60 - 1.00 ] AV Mean PG3.64 mmHg LVPWd 2D 1.19 cm [ 0.60 - 1.00 ] AV VTI26.98 cm LV Thickness Ratio 1.04 LVOT Peak Vel1.28 m/s [ 0.70 - 1.10 ] LV FS 2D 27.51 % [ 25.00 - 43.00 ] LVOT Peak PG6.55 LV Mass 2D 224.32 g LVOT Mean PG2.55 mmHg LV Mass Index 2D 115.63 g/m2 LVOT VTI22.02 cm RWT 0.50 LVOT Diam2.03 cm EDV Mod BP 121.33 ml [ 62.00 - 150.00 ] DOT VTI2.64 cm2 LV EDV Index 62.54 ml/m2 LVOT/AV VTI0.82 - Dimensionless index (DVI) ESV Mod BP 48.46 ml [ 21.00 - 61.00 ] MV E Peak Vel0.62 m/s [ 0.60 - 1.30 ] EF Mod BP 60 % [ 52 - 72 ] MV A Peak Vel0.78 m/s [ 1.00 - 1.20 ] LV GLS -14.8 % [ -18.0 - -16.0 ] MV E/A0.80 ratio [ 0.80 - 1.50 ] LA Length 2C 4.78 cm MV Peak Vel0.53 m/s LA Length 4C 4.79 cm MV Peak PG1.12 LA Volume BP 43.24 ml MV Mean PG0.41 mmHg LA Volume Index 22.29 ml/m2 [ 16.00 - 34.00 ] MV VTI14.93 cm MV Annulus 2D 2.77 cm MV Decel Bigo832.11 msec [ 104.00 - 258.00 ] RV Base Dimen 2D 3.5 cm [ 2.5 - 4.2 ] Med E` Vel6.34 cm/sec [ 8.00 - 15.00 ] TAPSE 1.78 cm [ 1.71 - 5.00 ] Lat E` Vel9.21 cm/sec [ 10.00 - 15.00 ] RA Volume 29.03 ml Average E/E`7.97 RA Volume Index 14.96 ml/m2 RV S`9.56 cm/sec AoR Diam 2D 3.38 cm [ 3.10 - 3.70 ] TR Peak Vel2.54 m/s [ 1.00 - 2.80 ] Ao Root Index 1.74 cm/m2 [ 1.00 - 2.00 ] TR Peak PG25.8 PV Peak Deonte 1.24 m/s [ 0.40 - 0.80 ] PV Peak PG 6.15 - ATTESTATION: I have reviewed and interpreted the pertinent images and measurements ofthis study. I attest to the conclusions in the final report that is provided above. DISCLAIMER: The study images and the final report will be retained in the patientchart by the [facility] for the legally required time period. This chart constitutesthe legal record of any testing performed. Electronically Signed By: Wellington Linares MD 06/13/2024 08:49:56 SPINNING MULE TENDER Electronically Signed By: Wellington Linares MD 06/13/2024 08:49:56 SPINNING MULE TENDER us Wellington Linares MD CV ECHO PROCEDURES Final Res ult * ECG 12 lead (06/12/2024 1:07 PM SPINNING MULE TENDER) Wellington Linares MD ECG ORDERABLES Final Result * FLEXIBLE SIGMOIDOSCOPY REPORT (05/19/2016) Anatomical Region Laterality Modality Other Narrative 05/19/2016 Ordered by an unspecified provider. Natalya Provider GI PROCEDURE ORDERABLES F inal Result * CTA Abdominal Aorta And Bilateral Iliofemoral Runoff W WO Contrast (01/03/2016 11:59 AM CDT) Anatomical Region Laterality Modality Body Bilateral Computed Tomogra phy 01/03/2016 11:5 9 AM CDT Narrative 01/03/2016 3:40 PM CDT LILY LANDAVERDE M.D. ERROL MARTINEZ MD FINAL REPORT The radiology attending physician has personally reviewed this study, and has reviewed and/or edited this written report and agrees with it. ACC# Date Time Exam [id number] Jan 03, 2016 11:59:[address] Angio Abd & AIF wwo con EXAMINATION: CT ANGIOGRAPHY OF THE ABDOMEN, PELVIS, AND LOWER EXTREMITIES WITH CONTRAST HISTORY: 65-year-old man with abdominal aortic aneurysm, nonruptured. Intermittent, claudication TECHNIQUE: CT angiography of the abdomen, pelvis, and lower extremities performed following uneventful intravenous administration of Optiray-350. Vascular 3D images were generated on a dedicated workstation and also reviewed. FINDINGS: No prior CT angiography for comparison. VASCULAR FINDINGS: Abdominal Aorta and Branches: Celiac axis: no significant stenosis SMA: no significant stenosis CÉSAR: Patent. Arises from the superior margin of the aneurysm described below. Right renal vessels: no significant stenosis Left renal vessels: no significant stenosis Infrarenal aorta: Infrarenal abdominal aortic aneurysm described in detail below. Pelvic Vessels: R. Common iliac artery: no significant stenosis R. External iliac artery: no significant stenosis R. Internal iliac artery: no significant stenosis L. 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 External iliac artery: no significant stenosis L. Internal iliac artery: Opacified by retrograde flow from collaterals. Femorofemoral bypass graft is completely occluded. Right Lower Extremity: R. Common femoral artery: no significant stenosis R. Profunda femoris artery: no significant stenosis R. SFA: Multifocal moderate stenosis and calcification R. Popliteal artery: no significant stenosis R. Anterior tibial artery: no significant stenosis R. Tibioperoneal trunk: no significant stenosis R. Posterior tibial artery: no significant stenosis R. Peroneal artery: no significant stenosis R. Dorsalis pedis artery: no significant stenosis R. Plantar artery: no significant stenosis Left Lower Extremity: L. Common femoral artery: Chronic total occlusion L. Profunda femoris artery: no significant stenosis L. SFA: Reconstituted at its origin by collateral flow. Multifocal moderate stenosis and calcification. L. Popliteal artery: no significant stenosis L. Anterior tibial artery: no significant stenosis L. Tibioperoneal trunk: no significant stenosis L. Posterior tibial artery: Becomes occluded in the midcalf L. Peroneal artery: no significant stenosis L. Dorsalis pedis artery: no significant stenosis L. Plantar artery: no significant stenosis Vascular measurements: Aortic diameter at proximal implantation site: 21 mm AP by 21 mm waakp-md-evih Aortic diameter 10mm inferior to proximal implantation site: 22 mm AP by 22 mm gatlh-rw-lksx Aortic diameter 15mm inferior to proximal implantation site: 24 mm AP by 24 mm jxqcd-xa-pnuc Maximum outer aneurysm diameter: 55 mm AP by 52 mm chups-jh-eiir. Aortic neck length: 19 mm Right common iliac diameter: 9-14 mm Left common iliac diameter: Occluded Right external iliac diameter: 7-13 mm Left external iliac diameter: Occluded Length from lower renal artery to right common iliac origin: 110 mm Length from lower renal artery to left common iliac origin: 111 mm Right length for sealing/lower renal to iliac bifurcation: 189 mm Left length for sealing/lower renal to iliac bifurcation: Left iliac vessels occluded NON-VASCULAR FINDINGS: The liver, gallbladder, pancreas, spleen, and adrenal glands are normal. There are bilateral renal cysts. No hydronephrosis. Urinary bladder, prostate gland, seminal vesicles are normal. There is no bowel wall thickening or obstruction. No abdominal/pelvic lymphadenopathy or ascites. The partially imaged lung bases are clear. No concerning osseous lesions. IMPRESSION: 1. 5.5 mm x 5.2 mm infrarenal abdominal aortic aneurysm. 2. AAA volume: 145 cc. 3. Occluded femoral-femoral bypass graft 4. Right lower extremity: Moderate stenosis in the superficial femoral artery with three-vessel runoff to the right foot. 4. Left lower extremity: Left common iliac artery occluded to the common femoral artery. The superficial femoral artery is patent with moderate stenosis. Two vessel runoff to the left foot with occlusion of posterior tibial artery in the mid calf. Requested By: ANA LILIA SANZ M.D. Dictated By: ERROL MARTINEZ MD on Jan 03 2016 2:51P This document has been electronically signed by: LILY LANDAVERDE M.D. on Jan 03 2016 3:40P [id number] Procedure Note Provider, MD Natalya - 08/20/2016 LILY LANDAVERDE M.D. ERROL MARTINEZ MD FINAL REPORT The radiology attending physician has personally reviewed this study, and has reviewed and/or edited this written report and agrees with it. ACC# Date Time Exam [id number] Jan 03, 2016 11:59:[address] Angio Abd & AIF wwo con EXAMINATION: CT ANGIOGRAPHY OF THE ABDOMEN, PELVIS, AND LOWER EXTREMITIES WITH CONTRAST HISTORY: 65-year-old man with abdominal aortic aneurysm, nonruptured. Intermittent, claudication TECHNIQUE: CT angiography of the abdomen, pelvis, and lower extremities performed following uneventful intravenous administration of Optiray-350. Vascular 3D images were generated on a dedicated workstation and also reviewed. FINDINGS: No prior CT angiography for comparison. VASCULAR FINDINGS: Abdominal Aorta and Branches: Celiac axis: no significant stenosis SMA: no significant stenosis CÉSAR: Patent. Arises from the superior margin of the aneurysm described below. Right renal vessels: no significant stenosis Left renal vessels: no significant stenosis Infrarenal aorta: Infrarenal abdominal aortic aneurysm described in detail below. Pelvic Vessels: R. Common iliac artery: no significant stenosis R. External iliac artery: no significant stenosis R. Internal iliac artery: no significant stenosis L. 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 External iliac artery: no significant stenosis L. Internal iliac artery: Opacified by retrograde flow from collaterals. Femorofemoral bypass graft is completely occluded. Right Lower Extremity: R. Common femoral artery: no significant stenosis R. Profunda femoris artery: no significant stenosis R. SFA: Multifocal moderate stenosis and calcification R. Popliteal artery: no significant stenosis R. Anterior tibial artery: no significant stenosis R. Tibioperoneal trunk: no significant stenosis R. Posterior tibial artery: no significant stenosis R. Peroneal artery: no significant stenosis R. Dorsalis pedis artery: no significant stenosis R. Plantar artery: no significant stenosis Left Lower Extremity: L. Common femoral artery: Chronic total occlusion L. Profunda femoris artery: no significant stenosis L. SFA: Reconstituted at its origin by collateral flow. Multifocal moderate stenosis and calcification. L. Popliteal artery: no significant stenosis L. Anterior tibial artery: no significant stenosis L. Tibioperoneal trunk: no significant stenosis L. Posterior tibial artery: Becomes occluded in the midcalf L. Peroneal artery: no significant stenosis L. Dorsalis pedis artery: no significant stenosis L. Plantar artery: no significant stenosis Vascular measurements: Aortic diameter at proximal implantation site: 21 mm AP by 21 mm ifkng-um-wxuf Aortic diameter 10mm inferior to proximal implantation site: 22 mm AP by 22 mm xmmbk-gz-kbzs Aortic diameter 15mm inferior to proximal implantation site: 24 mm AP by 24 mm gyzak-xn-phqr Maximum outer aneurysm diameter: 55 mm AP by 52 mm kdlnq-pv-gflz. Aortic neck length: 19 mm Right common iliac diameter: 9-14 mm Left common iliac diameter: Occluded Right external iliac diameter: 7-13 mm Left external iliac diameter: Occluded Length from lower renal artery to right common iliac origin: 110 mm Length from lower renal artery to left common iliac origin: 111 mm Right length for sealing/lower renal to iliac bifurcation: 189 mm Left length for sealing/lower renal to iliac bifurcation: Left iliac vessels occluded NON-VASCULAR FINDINGS: The liver, gallbladder, pancreas, spleen, and adrenal glands are normal. There are bilateral renal cysts. No hydronephrosis. Urinary bladder, prostate gland, seminal vesicles are normal. There is no bowel wall thickening or obstruction. No abdominal/pelvic lymphadenopathy or ascites. The partially imaged lung bases are clear. No concerning osseous lesions. IMPRESSION: 1. 5.5 mm x 5.2 mm infrarenal abdominal aortic aneurysm. 2. AAA volume: 145 cc. 3. Occluded femoral-femoral bypass graft 4. Right lower extremity: Moderate stenosis in the superficial femoral artery with three-vessel runoff to the right foot. 4. Left lower extremity: Left common iliac artery occluded to the common femoral artery. The superficial femoral artery is patent with moderate stenosis. Two vessel runoff to the left foot with occlusion of posterior tibial artery in the mid calf. Requested By: ANA LILIA SANZ M.D. Dictated By: ERROL MARTINEZ MD on Jan 03 2016 2:51P This document has been electronically signed by: LILY LANDAVERDE M.D. on Jan 03 2016 3:40P [id number] Historical Provider MD PRYOR CT PROCEDURES Final R esult from Last 3 Months or Most Recently Relevant to Health Maintenance Insurance [facility]IC[facility] Care Teams Snack Bar Attendant Relationship Specialty Start Date End Date Li Tay MD [address] [place] [address] PCP - General 05/30/16
--- OUTSIDE RECORDS SUMMARY | 2024-08-20 09:46 | XMS_ITS | Referral Summary ---
Author Organization [facility] Address [address] [place] [address] Care Team Providers Care Sorter Laundry Articles Name Role Phone Li Tay MD Primary Care Provider Encounters Date Type Department Care Team Description 07/01/2024 10:15 AM CDT Ancillary Procedure [facility] Vascular Lab Vascular Surgery [address] [place] [address] 3, [address] [place] [id number] Atherosclerosis of [place] arteries of extremities with intermittent claudication, left leg 07/01/2024 11:15 AM CDT Office Visit [facility] Vascular Surgery [facility] Office [facility] [address] [place] [address] Idris Perez NP Encounter for surgical aftercare following surgery on the circulatory system (Primary Dx) 06/12/2024 3:00 PM RECAPPER Ancillary Procedure [facility] [address] [place] [address] 3 [address] [place] [address] Hypertension, unspecified type 06/12/2024 Results Follow-Up [facility] Cardiology [address] [place] [address] Office Building [address] [place] [address] Wellington Linares MD 06/12/2024 1:30 PM RECAPPER Office Visit [facility] Cardiology [facility] Medical Office Building [address] [place] [id number] Wellington Linares MD Coronary artery disease involving [place] coronary artery of [place] heart without angina pectoris (Primary Dx); PVD (peripheral vascular disease); Hypertension, unspecified type; Hyperlipidemia, unspecified hyperlipidemia type from Last 3 Months Allergies Active Allergy Reactions Criticality Noted Date [...] Problem Noted Date Diagnosed Date Atherosclerosis of [place] ar teries of extremities with intermittent claudication, left leg 06/19/2023 Encounter for surgical after care following surgery on the circulatory system 05/30/2016 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/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 12/17/2015 PVD (peripheral vascular disease) 10/21/2015 Social History Tobacco Use Types Packs/Day Years [...] on file Legal Sex Male 8:16 AM RECAPPER Gender Identity Not on file Sexual Orientation Straight 12/31/2018 10 :17 AM CDT Last Filed Vital Signs Vital Sign Reading Time Taken Comments Blood Pressure 166/78 07/01/2024 10:49 AM CDT Pulse 66 07/01/2024 10:49 AM CDT Temperature 36.9 C (98.5 F) 06/19/2023 11:28 AM RECAPPER Respiratory Rate - - Oxygen Saturation 100% 07/01/2024 10:49 AM CDT Inhaled Oxygen Concentration - - Weight 76.2 kg (168 lb) 07/01/2024 10:49 AM CDT Height 177.8 cm (5' 10 ) 07/01/2024 10:49 AM CDT Body Mass Index 24.11 07/01/2024 10:49 AM CDT Plan of Treatment Not on file Procedures Procedure Name Priority Date/Time Associated Diagnosis Comments COPY(IES) SENT TO: Routine 08/05/2024 9: 02 AM CDT LIPID PANEL Routine 08/05/2024 9:02 AM CDT Hyperlipidemia, unspecified hyperlipidemia type US ARTERIAL DOPPLER LOWER EXTREMITY BILATERAL Schedule Routine, Read Routine (OP Routine) 07/01/2024 10:50 AM CDT Atherosclerosis of [place] arteries of extremities with intermittent claudication, left leg TRANSTHORACIC ECHO (TTE) COMPLETE W DOPPLER/CF WO CONTRAST Routine 06/12/2024 3:16 PM RECAPPER Hypertension, unspecified type ECG 12-LEAD Routine 06/12/2024 1:07 PM RECAPPER PVD (peripheral vascular disease) FLEXIBLE SIGMOIDOSCOPY REPORT 05/19/2016 CTA ABDOMINAL AORTA AND BILATERAL ILIOFEMORAL RUNOFF Routine 01/03/2016 11:59 AM CDT from Last 3 Months or Most Recently Relevant to Health Maintenance Results * COPY(IES) SENT TO: (08/05/2024 9:02 AM CDT) COPY(IES) SENT TO: [facility] Comment: [address] [address] 08/05/2024 9:02 AM CDT 08/05/2024 9:03 AM CDT Narrative [facility] - 08/06/2024 3:56 AM CDT FASTING:YES FASTING: YES us Wellington Linares MD LAB BLOOD ORDERABLES Final R esult [facility] * (ABNORMAL) Lipid panel (08/05/2024 9:02 AM CDT) Cholesterol 115 <200 mg/dL [facility] [...] LDL-C. Maxim SS et al. KUSHAL. 2013;310(19): 2577-8465 (http://education.[employer].[place]/faq/DJX694) Chol/HDL ratio 4.3 <5.0 (calc) [facility] [...] 08/06/2024 3:56 AM CDT FASTING:YES FASTING: YES us Wellington Linares MD LAB BLOOD ORDERABLES Final R esult [email or web address] [address] [place] [address] * US Arterial Doppler Lower Extremity Bilateral (07/01/2024 10:50 AM CDT) Anatomical Region Laterality Modality Vascular Bilateral Ultrasound 07/01/2024 10:1 6 AM CDT Narrative 07/01/2024 1:44 PM CDT [facility] - Department of Vascular Surgery, Vascular Laboratory [address] [place] [address] Lower Extremity Arterial Doppler Report Patient Name: RENAE MENDES : 1950 Study Date: 07/01/2024 10:16:00 AM Gender: M Tech: Nuzhat Martinez [facility] Provider: IDRIS PEREZ Quality: Adequate Order Provider: IDRIS PEREZ PROCEDURES: Arterial Report: Bilateral lower extremity arterial Doppler exam at rest. INDICATIONS: I70.212 Atherosclerosis of [place] arteries of extremities with intermittent claudication, left leg. MEASUREMENTS: Right Value Units Left Value Units Rt Brachial Pressure 178 mmHg Lt Brachial Pressure 181 mmHg Rt POTATO PICKER Pressure 96 mmHg Lt POTATO PICKER Pressure 102 mmHg Rt DPA Pressure 86 mmHg Lt DPA Pressure 95 mmHg Rt 1st Digit Pressure 81 mmHg Lt 1st Digit Pressure 91 mmHg Rt PT REED Resting 0.53 Lt PT REED Resting 0.56 Rt AT REED Resting 0.48 Lt AT REED Resting 0.52 Rt Digit/Arm Index 0.45 Lt Digit/Arm Index 0.5 Right Value Units Left Value Units FINDINGS: Performing Mold Maker: Nuzhat Martinez RVT. Right Common Femoral Artery [...] Electronically Signed By: Ana Lilia Sanz MD [facility] [phone] 07/01/2024 1:10:30 PM CDT Procedure Note Ana Lilia Sanz MD - 07/01/2024 [facility] - Department of Vascular Surgery,Vascular Laboratory [address] [place] [address] Lower Extremity Arterial Doppler Report Patient Name: RENAE MENDES : 1950 Study Date: 07/01/2024 10:16:00 AM Gender: M Tech: Nuzhat Martinez RVT Location: [facility] Provider: IDRIS PEREZ Quality: Adequate Order Provider: IDRIS PEREZ PROCEDURES: Arterial Report: Bilateral lower extremity arterial Doppler exam at rest. INDICATIONS: I70.212 Atherosclerosis of [place] arteries of extremities withintermittent claudication, left leg. MEASUREMENTS: Right Value Units Left Value Units Rt Brachial Pressure 178 mmHg Lt Brachial Pressure 181 mmHg Rt POTATO PICKER Pressure 96 mmHg Lt POTATO PICKER Pressure 102 mmHg Rt DPA Pressure 86 mmHg Lt DPA Pressure 95 mmHg Rt 1st Digit Pressure 81 mmHg Lt 1st Digit Pressure 91 mmHg Rt PT REED Resting 0.53 Lt PT REED Resting 0.56 Rt AT REED Resting 0.48 Lt AT REED Resting 0.52 Rt Digit/Arm Index 0.45 Lt Digit/Arm Index 0.5 Right Value Units Left Value Units FINDINGS: Performing Mold Maker: Nuzhat Martinez RVT. Right Common Femoral Artery [...] Electronically Signed By: Ana Lilia Sanz MD [facility] [phone] 07/01/2024 1:10:30 PM CDT us Idris Perez NP IMG US PROCEDURES Final Result * TRANSTHORACIC ECHO (TTE) COMPLETE W DOPPLER/CF WO CONTRAST (06/12/2024 3:16 PM RECAPPER) Anatomical Region Laterality Modality Ultrasound 06/12/2024 2:48 PM RECAPPER Narrative 06/13/2024 8:50 AM RECAPPER [facility] Cardiac Diagnostic Lab [address] , [address] [place] [address] Transthoracic Echocardiographic Report Patient Name: RENAE MENDES : 1950 (74y 1m) Gender: M Study Date: 06/12/2024 14:48:46 Ht(Inch): 70 Wt(Lb): 167.99 BSA: 1.94 Mold Maker: Tahira Cervantes [facility] Location: [facility] Order Provider: WELLINGTON LINARES BMI: 24.1 Quality: The study images were of technically good quality. Ref Provider: WELLINGTON LINARES PROCEDURES: Echocardiographic Report: ([id number]) Transthoracic complete echo, 2D, spectral and tissue [...] Signed By: Wellington Linares MD 06/13/2024 08:49:56 RECAPPER Electronically Signed By: Wellington Linares MD 06/13/2024 08:49:56 RECAPPER Procedure Note Wellington Linares MD - 06/13/2024 [facility] Cardiac Diagnostic Lab [address] [place] [address] Transthoracic Echocardiographic Report Patient Name: RENAE MENDES : 1950 (74y 1m) Gender: M Study Date: 06/12/2024 14:48:46 Ht(Inch): 70 Wt(Lb): 167.99 BSA: 1.94 Mold Maker: Tahira Cervantes [facility] Location: [facility] Order Provider:WELLINGTON LINARES BMI: 24.1 Quality: The study images were of technicallygood quality. Ref Provider: WELLINGTON ILNARES PROCEDURES: Echocardiographic Report: ([id number]) Transthoracic complete echo, 2D,spectral and tissue Doppler, [...] MV Annulus 2D 2.77 cm MV Decel Ehvc889.11 msec [ 104.00 - 258.00 ] RV [...] Signed By: Wellington Linares MD 06/13/2024 08:49:56 RECAPPER Electronically Signed By: Wellington Linares MD 06/13/2024 08:49:56 RECAPPER us Wellington Linares MD CV ECHO PROCEDURES Final Res ult * ECG 12 lead (06/12/2024 1:07 PM RECAPPER) us Wellington Linares MD ECG ORDERABLES Final Result * FLEXIBLE SIGMOIDOSCOPY REPORT (05/19/2016) Anatomical Region Laterality Modality Other Narrative 05/19/2016 Ordered by an unspecified provider. us Natalya Nichols MD GI PROCEDURE ORDERABLES F inal Result * [...] this written report and agrees with it. [facility]# Date Time Exam [id number] Jan 03, 2016 11:59:[address] Angio Abd & AIF wwo con [...] site: 21 mm AP by 21 mm znxej-fw-jjfr Aortic diameter 10mm inferior to proximal implantation site: 22 mm AP by 22 mm sqaty-qk-nrrh Aortic diameter 15mm inferior to proximal implantation site: 24 mm AP by 24 mm dwgli-rn-kply Maximum outer aneurysm diameter: 55 mm AP by 52 mm kfrcd-jy-odnz. Aortic neck length: 19 mm Right common [...] LANDAVERDE M.D. on Jan 03 2016 3:40P [id number] Procedure Note Provider, MD Natalya - 08/20/2016 Cleo JEWELL MD FINAL REPORT The radiology attending physician has personally reviewed this study, and has reviewed and/or edited this written report and agrees with it. [facility]# Date Time Exam [id number] Jan 03, 2016 11:59:[address] Angio Abd & AIF wwo con [...] site: 21 mm AP by 21 mm cenci-ub-uvhs Aortic diameter 10mm inferior to proximal implantation site: 22 mm AP by 22 mm fpawe-iv-olzt Aortic diameter 15mm inferior to proximal implantation site: 24 mm AP by 24 mm tpgse-fj-fgav Maximum outer aneurysm diameter: 55 mm AP by 52 mm isdtb-tb-gvwz. Aortic neck length: 19 mm Right common [...] LANDAVERDE M.D. on Jan 03 2016 3:40P [id number] us Historical Provider MD PRYOR CT PROCEDURES Final R esult from Last 3 Months or Most Recently Relevant to Health Maintenance Insurance [facility] MEDICARE [facility] MEDICARE [facility] MEDICARE [facility] Care Teams Sorter Laundry Articles Relationship Specialty Start Date End Date Li Tay MD [address] [place] [address] PCP - General 05/30/16
--- OUTSIDE RECORDS SUMMARY | 2024-08-20 09:47 | XMS_ITS | Encounter Summary ---
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 Gender Identity Not on file Sexual Orientation Straight 12/31/2018 10 :17 AM CDT documented as of this encounter Plan of Treatment Not on file documented as of this encounter Procedures Procedure Name Priority Date/Time Associated Diagnosis Comments VASCULAR LABORATORY REPORT 12/25/2016 6:21 PM CDT documented in this encounter Results * VASCULAR LABORATORY REPORT (12/25/2016 6:21 PM CDT) Anatomical Region Laterality Modality Ultrasound us Provider Scanning CV VASCULAR PROCEDURES Final R esult documented in this encounter Visit Diagnoses Not on filedocumented in this encounter Care Teams Medical Writer Relationship Specialty Start Date End Date Li Tay MD [address] [place] [address] PCP - General 05/30/16 documented as of this encounter
--- OUTSIDE RECORDS SUMMARY | 2024-08-20 09:47 | XMS_ITS | Clinical Summary ---
Author Organization [facility] Address [address] [place] [address] Care Team Providers Care Bridges And Buildings Supervisor Name Role Phone Li Tay MD Primary Care Provider Bull Sanches MD Unavailable [phone] Marta Davenport MD Unavailable [phone] Allergies Active Allergy Reactions Criticality Noted Date Comments Prochlorperazine Other (see comment) Low 01/18/2022 Reaction: DIARRHEA;, Shellfish Allergy Nausea and Vomiting 6 Medications aspirin EC 81 MG tablet Take 1 tablet (81 mg total) by mouth daily. 04/14/2015 Active simvastatin 20 MG tablet Take 1 tablet (20 mg total) by mouth daily. 04/14/2015 Active glimepiride (AMARYL) 2 MG tablet Take 1 tablet (2 mg total) by mouth every morning. 12/12/2021 Active metFORMIN ER (GLUCOPHAGE-XR) 500 MG 24 hr tablet Take 2 tablets (1,000 mg total) by mouth 2 (two) times daily. 12/12/2021 Active ferrous sulfate EC 324 (65 Fe) MG tablet Take 1 tablet (324 mg total) by mouth daily with breakfast. Active losartan (COZAAR) 50 MG tablet Take 1 tablet (50 mg total) by mouth daily. Active Active Problems Problem Noted Date Diagnosed Date Primary hypertension 02/07/2023 Hx of CABG 01/18/2022 S/P AAA repair 01/18/2022 Presence of stent of bypass graft 12/17/2015 Coronary artery disease invo lving [place] coronary artery of [place] heart without angina pectoris 10/21/2015 Type 2 diabetes mellitus ([facility]) 10/20 Essential hypertension 10/21/2015 Mixed hyperlipidemia 10/21/2015 AAA (abdominal aortic aneurysm) without rupture 10/21/2015 PVD (peripheral vascular disease) 10/21/2015 Immunizations Immunization Administration Dates Next Due Influenza (Generic) 04/01/2015 Influenza Adult (Generic) 01/19/2021,04/2019,12/25/2018,01/13/20 17,01/24/2016 Pneumococcal (Pneumovax 23) 11/30/2017 Pneumococcal (Prevnar 13) 02/08/2015 Shingrix 04/19/2018,11/30/2017 Tdap (Generic) 07/27/2015 Zoster (Zostavax) 10553 Unt/0.65Ml 07/27/2015 Family History Medical History Relation Comments Coronary artery disease Brother Relation Status Comments Brother CABG Social History Tobacco Use Types Packs/Day Years Used Date Smoking Tobacco: Former Cigarettes Q uit: 2000 Smokeless Tobacco: Never Alcohol Use Standard Drinks/Week Comments No 0 (1 standard drink = 0.6 oz pur e alcohol) Sex and Gender Information Value Date Recorded Sex Assigned at Not on file Legal Sex Male 6:07 PM CDT Gender Identity Not on file Sexual Orientation Not on file Last Filed Vital Signs Vital Sign Reading Time Taken Comments Blood Pressure 134/64 01/29/2023 11:19 AM CDT Pulse 53 01/29/2023 11:19 AM CDT ekg Temperature - - Respiratory Rate 16 01/29/2023 11:19 AM CDT Oxygen Saturation - - Inhaled Oxygen Concentration - - Weight 74.2 kg (163 lb 9.6 oz) 01/29/2023 11:19 AM CDT Height 177.8 cm (5' 10 ) 01/29/2023 11:19 AM CDT Body Mass Index 23.47 01/29/2023 11:19 AM CDT Plan of Treatment Health Maintenance Due Date Last Done Comments ASCVD LDL 1950 ASCVD Statin 1950 Colorectal Cancer Screening Colonoscopy (10 Years) 1950 Kidney Health Evaluation 1950 Lipid Panel 1950 Diabetes: Retinopathy Eye Exam 1968 Hepatitis C 1968 RSV Immunization or 60+ Years (1 - Risk 60-74 years 1-dose series) 2010 Annual Medicare Wellness Visit 2015 Hemoglobin A1C 02/23/2016 08/23/2015 COVID-19 Vaccine ( season) 2023 08/22/2021, 02/13/2021, 06/25/2020, Additional history exists DTaP, Tdap and Td Vaccines (2 - Td or Tdap) 07/26/2025 07/27/2015 Pneumococcal Vaccine: 50+ Years Completed 11/30/2017, 02/08/2015 Zoster Vaccines Completed 04/19/2018, 11/14, 07/27/2015 Meningococcal B Vaccine Aged Out No l onger eligible based on patient's age to complete this topic Meningococcal Vaccine Aged Out No archie grover eligible based on patient's age to complete this topic RSV Immunizations Under 20 Months Aged Out No longer eligible based on patient's age to complete this topic Procedures Procedure Name Priority Date/Time Associated Diagnosis Comments HEMOGLOBIN, GLYCOSYLATED Routine 08/23/2015 2:17 PM CDT from Last 3 Months or Most Recently Relevant to Health Maintenance Results * (ABNORMAL) HEMOGLOBIN, GLYCOSYLATED (08/23/2015 2:17 PM CDT) HGB A1C 7.1(H) 4.5 - 6.0 % 08/23/2015 2:46 PM CDT [facility] ESTIMATED AVG GLUCOSE 157 MG/DL 08/23/2015 2:46 PM CDT [facility] 08/23/2015 2:17 PM CDT 08/23/2015 2:18 PM CDT us Generic Conversion Md [facility] Final R esult [facility] [place] [address], [id number] from Last 3 Months or Most Recently Relevant to Health Maintenance Insurance MEDICARE [facility] Advance Directives Documents on File Type Date Recorded Patient Service Parts Coordinator Expl anation Power of Residence Leasing Agent 01/24/2022 11:57 AM Miladys Mendes, HCA-spouse; Yared Mendes, 1st alternate HCA-son; Kaylee Dubose (Wright), 2nd alternate HCA-daughter; Advance Directives and Living Will 01/24/2022 11:55 AM [place]AR[place] Advance Directives and Living Will 10/04/2016 LIVING WILL Advance Directives and Living Will 10/04/2016 SHORT FORM POWER OF VENDER Advance Directives and Living Will 10/04/2015 LIVING WILL Advance Directives and Living Will 10/04/2015 SHORT FORM POWER OF VENDER Advance Directives and Living Will 08/31/2015 LIVING WILL Advance Directives and Living Will 08/31/2015 SHORT FORM POWER OF VENDER Advance Directives and Living Will 08/23/2015 LIVING WILL Healthcare Agents on File Name Relationship Healthcare Agent Relationship Communication Katelin Mendes (POAH) Spouse Health Care Agent Yared Mendes Son First Alternat e Health Care Agent Kaylee Tao (Mendes) Gracy Daughter Second Alternate Health Care Agent Care Teams Bridges And Buildings Supervisor Relationship Specialty Start Date End Date Li Tay MD [address] [place] [phone] PCP - General INTERNAL MEDICINE 10/11/15 Bull Sanches MD [address] [place] [phone] [place] Underground Truck Operator CARDIOVASCULAR DISEASE 10/11/15 Marta Davenport MD [address] [place] [phone] INTERVENTIONAL CARDIOLOGY 11/06/23
--- OUTSIDE RECORDS SUMMARY | 2024-08-20 09:47 | XMS_ITS | Encounter Summary ---
Author Organization [facility] Address [address] [place] [address] Phone Care Team Providers Care Dining Car Waiter/Waitress Name Role Phone Li Tay MD Primary Care Provider [phone] Encounter Details Date Type Department Care Team (Latest Contact Info) Description 01/29/2023 Orders Only [facility] Scanning, Provider Social History Tobacco Use Types Packs/Day Years Used Date Smoking Tobacco: Former Smokeless Tobacco: Never Alcohol Use Standard Drinks/Week Comments Not Currently [...] on file Legal Sex Male 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 Gender Identity Not on file Sexual Orientation Straight 12/31/2018 10 :17 AM CDT documented as of this encounter Plan of Treatment Not on file documented as of this encounter Procedures Procedure Name Priority Date/Time Associated Diagnosis Comments CARDIOLOGY DOCUMENT SCAN 01/29/2023 documented in this encounter Results * Cardiology Document Scan (01/29/2023) Anatomical Region Laterality Modality Other us Provider Scanning CV CARDIAC SERVICES PROCEDURES Final Result documented in this encounter Visit Diagnoses Not on filedocumented in this encounter Care Teams Dining Car Waiter/Waitress Relationship Specialty Start Date End Date Li Tay MD [address] [place], [place] [id number] PCP - General 05/30/16 documented as of this encounter
== END 2024-08-20 09:19 | disposition home or self-care (01) ==
PROVIDERS: PCP Internal Medicine; Visit Provider Internal Medicine
DX: I65.23 Occlusion and stenosis of bilateral carotid arteries (principal)
CPT/HCPCS: 93880

== ENCOUNTER 2024-10-08 14:30 | Outpatient (RCR) | payer MEDICARE, SELFPAY | END 2024-10-13 09:07 | disposition home or self-care (01) | LOC: ANHDMC 14:30 | PROVIDERS: PCP Internal Medicine; Visit Provider Internal Medicine | DX: E11.65 Type 2 diabetes mellitus with hyperglycemia (principal); Z71.89 Other specified counseling | CPT/HCPCS: G0108; G0109 ==

== ENCOUNTER 2025-01-01 16:28 | Outpatient (RCR) | payer MEDICARE, SELFPAY | END 2025-02-13 15:18 | disposition home or self-care (01) | LOC: ANHDMC 16:28 | PROVIDERS: PCP Internal Medicine; Visit Provider Internal Medicine | DX: E11.65 Type 2 diabetes mellitus with hyperglycemia (principal); Z71.89 Other specified counseling | CPT/HCPCS: G0109 ==

== ENCOUNTER 2025-01-05 10:01 | Outpatient (CLI) | payer MEDICARE, SELFPAY ==
--- NOTE | ~2025-01-05 | CT_ITS ---
EXAMINATION: CT diagnostic chest wo con DATE: 01/05/2025 10:22 INDICATION: Pulmonary nodule follow-up TECHNIQUE: Computed tomography (CT) of the chest was performed without intravenous contrast. The dose-length product was 199.03 mGy-cm. Automated exposure control and iterative reconstruction technique were employed. COMPARISON: CT dated 01/01/2024 FINDINGS: Heart size normal. No thoracic lymphadenopathy. There are calcified granulomas of the mediastinum and right hilum as well as the right lower lobe. No significant pleural or pericardial effusion. There is a left renal cysts. Gallbladder is contracted. There is atherosclerosis. There is emphysema. No endobronchial lesions. Stable stable some solid right lower lobe nodule measuring 7 mm. No significant change to slightly increased size of 8 mm left lower lobe nodule. Stable lingular atelectasis/scarring. Status post median sternotomy for CABG. IMPRESSION: 1. Increased size of 8 mm left lower lobe nodule, superior segment. Recommend follow-up CT in 3 months. 2: Stable some solid 7 mm right lower lobe nodule. Reviewed, dictated and finalized at location O. IMPRESSION: 1. Increased size of 8 mm left lower lobe nodule, superior segment. Recommend f ollow-up CT in 3 months. 2: Stable some solid 7 mm right lower lobe nodule.
--- OUTSIDE RECORDS SUMMARY | 2025-01-05 11:06 | XMS_ITS | Encounter Summary ---
Author Organization [facility] Address [address] [place] [address] Phone Care Team Providers Care Immigration Consultant Name Role Phone Li Tay MD Primary Care Provider [phone] Encounter Details Date Type Department Care Team [...] on file Legal Sex Male 8:16 AM DELI/BAKERY ASSOCIATE Gender Identity Not on file Sexual Orientation [...] on filedocumented in this encounter Care Teams Immigration Consultant Relationship Specialty Start Date End Date Li Tay MD [address] [place], [place] [id number] PCP - General 05/30/16 documented as of this encounter
--- OUTSIDE RECORDS SUMMARY | 2025-01-05 11:06 | XMS_ITS | Encounter Summary ---
Author Organization [facility] Address [address] [place] [address] Phone Care Team Providers Care Managing Consultant Clinical Professor Name Role Phone Li Tay MD Primary Care Provider [phone] Encounter Details Date Type Department Care Team (Latest Contact Info) Description 12/25/2016 Orders Only [facility] CONVERSION Scanning, Provider Social History Tobacco Use Types Packs/Day Years Used Date Smoking Tobacco: Former Sex and Gender Information Value Date Recorded Sex Assigned at Not on file Legal Sex Male 8:16 AM STORE ADMINISTRATIVE ASSISTANT Gender Identity Not on file Sexual Orientation [...] on filedocumented in this encounter Care Teams Managing Consultant Clinical Professor Relationship Specialty Start Date End Date Li Tay MD [address] [place] [address] PCP - General 05/30/16 documented as of this encounter
--- OUTSIDE RECORDS SUMMARY | 2025-01-05 11:06 | XMS_ITS | Encounter Summary ---
Author Organization [facility] Address [address] [place] [address] Phone Care Team Providers Care Supervisor Housecleaner Name Role Phone Li Tay MD Primary Care Provider [phone] Encounter Details Date Type Department Care Team (Latest Contact Info) Description 12/09/2024 Orders Only [facility] [place], Tahira Macario RN Social History Tobacco Use Types Packs/Day Years [...] on file Legal Sex Male 8:16 AM DIRECTOR OF PERIOPERATIVE SERVICES Gender Identity Not on file Sexual Orientation Straight 12/31/2018 10 :17 AM CDT documented as of this encounter Plan of Treatment Not on file documented as of this encounter Procedures Procedure Name Priority Date/Time Associated Diagnosis Comments SCAN - LABS 12/09/2024 documented in this encounter Results * SCAN - LABS (12/09/2024) us Tahira Crowder RN Final Res ult documented in this encounter Visit Diagnoses Not on filedocumented in this encounter Care Teams Supervisor Housecleaner Relationship Specialty Start Date End Date Li Tay MD [address] [place] [address] PCP - General 05/30/16 documented as of this encounter
--- OUTSIDE RECORDS SUMMARY | 2025-01-05 11:06 | XMS_ITS | Clinical Summary ---
Author Organization [facility] Address [address] [place] [address] Care Team Providers Care Agricultural Education Instructor Name Role Phone Li Tay MD Primary Care Provider [phone] Bull Sanches MD Unavailable [phone] Marta Davenport MD Unavailable [phone] Allergies Active Allergy Reactions Criticality Noted [...] graft 12/17/2015 Coronary artery disease invo lving [place] coronary artery of [place] heart without angina pectoris 10/21/2015 Type 2 diabetes mellitus ([facility]) 10/20 Essential hypertension 10/21/2015 Mixed hyperlipidemia 10/21/2015 AAA (abdominal aortic aneurysm) without rupture 10/21/2015 PVD (peripheral vascular disease) 10/21/2015 Immunizations Immunization Administration Dates Next Due Influenza (Generic) 04/01/2015 Influenza Adult (Generic) 01/19/2021,04/2019,12/25/2018,01/13/20 17,01/24/2016 Pneumococcal (Pneumovax 23) 11/30/2017 Pneumococcal (Prevnar 13) 02/08/2015 Shingrix 04/19/2018,11/30/2017 Tdap (Generic) 07/27/2015 Zoster (Zostavax) 44341 Unt/0.65Ml 07/27/2015 Family History Medical History Relation [...] 11:19 AM CDT Height 177.8 cm (5' 10) 01/29/2023 11:19 AM CDT Body Mass Index [...] 2015 Hemoglobin A1C 02/23/2016 08/23/2015 COVID-19 Vaccine (2024- season) 2024 08/22/2021, 02/13/2021, 06/25/2020, Additional history exists DTaP, [...] - 6.0 % 08/23/2015 2:46 PM CDT [facility] ESTIMATED AVG GLUCOSE 157 MG/DL 08/23/2015 2:46 PM CDT [facility] 08/23/2015 2:17 PM CDT 08/23/2015 2:18 PM CDT us Generic Conversion Md [facility] Final R esult [facility] [place] [address], [id number] from Last 3 Months or Most Recently Relevant to Health Maintenance Insurance MEDICARE [facility] Advance Directives Documents on File Type Date Recorded Patient Plant Custodian Expl anation Power of Senior Ssis Developer 01/24/2022 11:57 AM Miladys Mendes, HCA-spouse; Yared Mendes, 1st alternate HCA-son; Kaylee Dubose (Wright), 2nd alternate HCA-daughter; Advance Directives and Living Will 01/24/2022 11:55 AM [place] DECLAR[place] Advance Directives and Living Will 10/04/2016 LIVING WILL Advance Directives and Living Will 10/04/2016 SHORT FORM POWER OF SUPERVISOR COOLER SERVICE Advance Directives and Living Will 10/04/2015 LIVING WILL Advance Directives and Living Will 10/04/2015 SHORT FORM POWER OF SUPERVISOR COOLER SERVICE Advance Directives and Living Will 08/31/2015 LIVING WILL Advance Directives and Living Will 08/31/2015 SHORT FORM POWER OF SUPERVISOR COOLER SERVICE Advance Directives and Living Will 08/23/2015 LIVING WILL Healthcare Agents on File Name Relationship Healthcare Agent Relationship Communication Katelin Mendes (POAH) Spouse Health Care Agent Yared Mendes Son First Alternat e Health Care Agent Kaylee Tao (Mendes) Gracy Daughter Second Alternate Health Care Agent Care Teams Agricultural Education Instructor Relationship Specialty Start Date End Date Li Tay MD [address] [place] [phone] PCP - General INTERNAL MEDICINE 10/11/15 Bull Sanches MD [address] [place] [phone] [place] Classification Inspector CARDIOVASCULAR DISEASE 10/11/15 Marat Davenport MD [address] [place] [phone] INTERVENTIONAL CARDIOLOGY 11/06/23
--- OUTSIDE RECORDS SUMMARY | 2025-01-05 11:06 | XMS_ITS | Encounter Summary ---
Author Organization [facility] Address [address] [place] [address] Phone Care Team Providers Care Type Casting Machine Operator Name Role Phone Li Tay MD Primary Care Provider [phone] Encounter Details Date Type Department Care Team (Late st Contact Info) Description 12/22/2024 Results Follow-Up [facility] [address] [place] [address] Donald Linares MD [address] [place] [address] SCAN - LABS Social History Tobacco Use Types Packs/Day Years [...] on file Legal Sex Male 8:16 AM SCREW MACHINE OPERATOR SINGLE SPINDLE Gender Identity Not on file Sexual Orientation Straight 12/31/2018 10 :17 AM CDT documented as of this encounter Plan of Treatment Not on file documented as of this encounter Visit Diagnoses Not on filedocumented in this encounter Care Teams Type Casting Machine Operator Relationship Specialty Start Date End Date Li Tay MD [address] [place] [address] PCP - General 05/30/16 documented as of this encounter
--- OUTSIDE RECORDS SUMMARY | 2025-01-05 11:06 | XMS_ITS | Clinical Summary ---
Author Organization [facility] Address [address] [place] [address] Care Team Providers Care Business Support Administrator Name Role Phone Li Tay MD Primary Care Provider [phone] Allergies Active Allergy Reactions Criticality Noted Date [...] Problem Noted Date Diagnosed Date Atherosclerosis of [place] ar teries of extremities with intermittent claudication, left leg 06/19/2023 Encounter for surgical after care following surgery on the circulatory system 05/30/2016 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/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 12/17/2015 PVD (peripheral vascular disease) 10/21/2015 Encounters Date Type Department Care Team Description 12/22/2024 Results Follow-Up [facility] [address] [place] [address] [address] [place] [address] Donald Linares MD SCAN - LABS 12/10/2024 12:45 PM CDT Office Visit [facility] [address] [place] [address] [place] [phone] Donald Linares MD Coronary artery disease involving [place] coronary artery of [place] heart without angina pectoris (Primary Dx); Mixed hyperlipidemia; PVD (peripheral vascular disease); Primary hypertension 12/09/2024 Orders Only [facility] [place], Tahira Macario RN from Last 3 Months Medical History Medical History Date Comments Diabetes mellitus (HCC) Coronary artery disease Peripheral arterial disease Hyperlipidemia LDL goal <70 Hypertension Family History Medical History Relation Name Comments [...] on file Legal Sex Male 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 INSTRUCTOR Gender Identity Not on file Sexual Orientation Straight 12/31/2018 10 :17 AM CDT Obstetrics History Last Filed Vital Signs Vital Sign Reading Time Taken Comments Blood Pressure 130/68 12/10/2024 12:27 PM CDT Pulse 62 12/10/2024 12:27 PM CDT Temperature 36.9 C (98.5 F) 06/19/2023 11:28 AM ESOL INSTRUCTOR Respiratory Rate - - Oxygen Saturation 97% 12/10/2024 12:27 PM CDT Inhaled Oxygen Concentration - - Weight 78 kg (172 lb) 12/10/2024 12:27 PM CDT Height 177.8 cm (5' 10) 12/10/2024 12:27 PM CDT Body Mass Index 24.68 12/10/2024 12:27 PM CDT Plan of Treatment Health Maintenance Due Date Last Done Comments Colon Cancer Screening-Colonoscopy 1950 Depression Screening 1950 Fall Risk Assessment 1950 Hepatitis C Screening 1950 Hepatitis B Screening 1968 Well Visit 65+ 2015 Covid-19 Vaccine (4 - 2024-2 6 season) 2024 02/13/2021, 06/25/2020, 06/04/2020 Influenza Vaccine (#1) 2024 4, 01/19/2021, 01/15/2020, Additional history exists DTaP/Tdap/Td Vaccine (2 - [...] Associated Diagnosis Comments SCAN - LABS 12/09/2024 FLEXIBLE SIGMOIDOSCOPY REPORT 05/19/2016 CTA ABDOMINAL AORTA AND BILATERAL ILIOFEMORAL RUNOFF Routine 01/03/2016 11:59 AM CDT from Last 3 Months or Most Recently Relevant to Health Maintenance Results * SCAN - LABS (12/09/2024) Tahira Crowder RN Final Res ult * FLEXIBLE SIGMOIDOSCOPY REPORT (05/19/2016) Anatomical Region Laterality Modality Other Narrative 05/19/2016 Ordered by an unspecified provider. us Historical Provider GI PROCEDURE ORDERABLES F inal Result [...] agrees with it. ACC# Date Time Exam [id number] Jan 03, 2016 11:59:[id number] Angio Abd & AIF wwo con [...] site: 21 mm AP by 21 mm [id number] Aortic diameter 10mm inferior to proximal implantation site: 22 mm AP by 22 mm [id number]-ew-owdp Aortic diameter 15mm inferior to proximal implantation site: 24 mm AP by 24 mm clgyl-fm-lvqe Maximum outer aneurysm diameter: 55 mm AP by 52 mm dpzps-ke-aohl. Aortic neck length: 19 mm Right common [...] LANDAVERDE M.D. on Jan 03 2016 3:40P [id number] Procedure Note Provider, MD Natalya - 08/20/2016 LILY LANDAVERDE M.D. ERROL [facility] MD FINAL REPORT The radiology attending physician has personally reviewed this study, and has reviewed and/or edited this written report and agrees with it. ACC# Date Time Exam [id number] Jan 03, 2016 11:59:[id number] Angio Abd & AIF wwo con [...] site: 21 mm AP by 21 mm bobdu-id-vzug Aortic diameter 10mm inferior to proximal implantation site: 22 mm AP by 22 mm ahktu-xg-zrlj Aortic diameter 15mm inferior to proximal implantation site: 24 mm AP by 24 mm jogba-az-ebgp Maximum outer aneurysm diameter: 55 mm AP by 52 mm lhdqn-zr-[id number]. Aortic neck length: 19 mm Right common [...] LANDAVERDE M.D. on Jan 03 2016 3:40P [id number] Historical Provider IMLia CT PROCEDURES Final R esult from Last 3 Months or Most Recently Relevant to Health Maintenance Insurance MEDICARE [facility] OPEN ACCESS MEDICARE [facility] MEDICARE [facility] MEDICARE [facility] Care Teams Business Support Administrator Relationship Specialty Start Date End Date Li Tay MD [address] [place] [address] PCP - General 05/30/16
== END 2025-01-05 10:02 | disposition home or self-care (01) ==
LOC: CHSIMG 10:02
PROVIDERS: PCP Internal Medicine; Visit Provider Internal Medicine
DX: R91.8 Other nonspecific abnormal finding of lung field (principal)
CPT/HCPCS: 71250

== ENCOUNTER 2025-04-14 08:18 | Outpatient (CLI) | payer MEDICARE, SELFPAY ==
--- NOTE | ~2025-04-14 | CT_ITS ---
CT diagnostic chest wo con HISTORY:LLL LUNG NODULE COMPARISON: 01/05/2025. TECHNIQUE: Axial images of the chest were obtained without infusion of intravenous contrast. Dose optimization technique was utilized. FINDINGS: The examination demonstrates 8 mm pulmonary nodules within the lower lobes bilaterally are stable. Lingula atelectasis is unchanged. Cardiac size and mediastinal configuration are normal in appearance. No hilar or mediastinal lymphadenopathy is seen. The thoracic aorta is normal in caliber. Osseous structures are intact. IMPRESSION: No acute cardiopulmonary process. Bilateral lower lobe pulmonary nodules are stable. All CT scans at this facility are performed using low dose modulation techniques as appropriate to perform exam including the following: automated exposure control; use of iterative reconstruction technique; adjustment of the mA and/or kV according to patient size (this includes techniques or standardized protocols for targeted exams where dose is matched to indication/reason for exam). Reviewed, dictated and finalized at location S. E ATTENDANT IMPRESSION: No acute cardiopulmonary process. Bilateral lower lobe pulmonary nodules are stable. All CT scans at this facility are performed using low dose modulation techniqu es as appropriate to perform exam including the following: automated exposure c ontrol; use of iterative reconstruction technique; adjustment of the mA and/or kV according to patient size (this includes techniques or standardized protocol s for targeted exams where dose is matched to indication/reason for exam).
--- OUTSIDE RECORDS SUMMARY | 2025-04-14 08:25 | XMS_ITS | Encounter Summary ---
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
--- OUTSIDE RECORDS SUMMARY | 2025-04-14 08:25 | XMS_ITS | Clinical Summary ---
Author Organization [facility] Address [address] [place] [address] Care Team Providers Care Core Oven Tender Name Role Phone Li Tay MD Primary Care Provider + [phone] Allergies Active Allergy Reactions Criticality Noted Date [...] Prevention Take 1 tablet by mouth Active glimepiride (AMARYL) 4 mg tabletIndicatio ns:type 2 diabetes mellitus Take 2 tablets (8 mg total) by mouth daily before breakfast Active atorvastatin (LIPITOR) 40 mg tablet TAKE 1 TABLET(40 MG) BY MOUTH EVERY NIGHT 90 tablet 3 Active Hospital, Clinic, or Other Facility Administered Medication Ordered Dose Route Frequency Start Date End Date Status perflutren protein-a (OPTISON) 3 mL in sodium chloride 0.9% 8 mL syringe 1 - 8 mL IV Once in imaging 06/12/2024 Active Active Problems Problem Noted Date Diagnosed Date 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, left leg 06/19/2023 Encounter for surgical after care following surgery on the circulatory system 05/30/2016 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/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 12/17/2015 PVD (peripheral vascular disease) 10/21/2015 Medical History Medical History Date Comments Diabetes mellitus Coronary artery disease Peripheral arterial disease Hyperlipidemia [...] on file 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 Gender Identity Not on file Sexual Orientation Straight 12/31/2018 10 :17 AM CDT Last Filed Vital Signs Vital Sign Reading Time Taken Comments Blood Pressure 130/68 12/10/2024 12:27 PM CDT Pulse 62 12/10/2024 12:27 PM CDT Temperature 36.9 C (98.5 F) 06/19/2023 11:28 AM ASSISTANT PROFESSOR OF MUSIC Respiratory Rate - - Oxygen Saturation 97% [...] Procedure Name Priority Date/Time Associated Diagnosis Comments FLEXIBLE SIGMOIDOSCOPY REPORT 05/19/2016 CTA ABDOMINAL AORTA AND BILATERAL ILIOFEMORAL RUNOFF Routine 01/03/2016 11:59 AM CDT from Last 3 Months or Most Recently Relevant to Health Maintenance Results * FLEXIBLE SIGMOIDOSCOPY REPORT (05/19/2016) Anatomical Region [...] with it. [facility]# Date Time Exam [id number] Jan 03, 2016 11:59:[id number] Angio Abd & AIF wwo con [...] site: 21 mm AP by 21 mm pkoty-sx-jmzz Aortic diameter 10mm inferior to proximal implantation site: 22 mm AP by 22 mm qjokf-nh-lbcn Aortic diameter 15mm inferior to proximal implantation site: 24 mm AP by 24 mm twgtz-ap-cfca Maximum outer aneurysm diameter: 55 mm AP by 52 mm wqybl-pq-bodo. Aortic neck length: 19 mm Right common [...] LANDAVERDE M.D. on Jan 03 2016 3:40P [id number] Procedure Note Provider, MD Natalya - 08/20/2016 LILY LANDAVERDE M.D. ERROL MARTINEZ MD FINAL REPORT The radiology attending physician has personally reviewed this study, and has reviewed and/or edited this written report and agrees with it. [facility]# Date Time Exam [id number] Jan 03, 2016 11:59:[id number] Angio Abd & AIF wwo con [...] site: 21 mm AP by 21 mm leuru-yn-hgbv Aortic diameter 10mm inferior to proximal implantation site: 22 mm AP by 22 mm bvqjb-na-gygm Aortic diameter 15mm inferior to proximal implantation site: 24 mm AP by 24 mm sjueg-gh-kasv Maximum outer aneurysm diameter: 55 mm AP by 52 mm jyhzl-pi-qqie. Aortic neck length: 19 mm Right common [...] LANDAVERDE M.D. on Jan 03 2016 3:40P [id number] us Historical Provider MD PRYOR CT PROCEDURES Final R esult from Last 3 Months or Most Recently Relevant to Health Maintenance Insurance MEDICARE [facility]ICARE [facility] MEDICARE [facility] MEDICARE [facility] Care Teams Core Oven Tender Relationship Specialty Start Date End Date Li Tay MD [address] [place] [address] PCP - General 05/30/16
--- OUTSIDE RECORDS SUMMARY | 2025-04-14 08:25 | XMS_ITS | Encounter Summary ---
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
--- OUTSIDE RECORDS SUMMARY | 2025-04-14 08:25 | XMS_ITS | Clinical Summary ---
Author Organization [facility] Address [address] [place] [address] Care Team Providers Care Patient Monitor Name Role Phone Li Tay MD Primary Care Provider Bull Sanches MD Unavailable [phone] Marta Davenport MD Unavailable [phone] Allergies Active Allergy Reactions Criticality Noted [...] graft 12/17/2015 Coronary artery disease invo [place]ving [place] coronary artery of [place] heart without angina pectoris 10/21/2015 Type 2 diabetes mellitus 10/21/2015 Essential hypertension 10/21/2015 Mixed hyperlipidemia 10/21/2015 AAA (abdominal aortic aneurysm) without rupture 10/21/2015 PVD (peripheral vascular disease) 10/21/2015 Immunizations Immunization Administration Dates Next Due Influenza (Generic) 04/01/2015 Influenza Adult (Generic) 01/19/2021,04/2019,12/25/2018,01/13/20 17,01/24/2016 Pneumococcal (Pneumovax 23) 11/30/2017 Pneumococcal (Prevnar 13) 02/08/2015 Shingrix 04/19/2018,11/30/2017 Tdap (Generic) 07/27/2015 Zoster (Zostavax) 08132 Unt/0.65Ml 07/27/2015 Family History Medical History Relation [...] 2024 08/22/2021, 02/13/2021, 06/25/2020, Additional history exists Influenza Adult (#1) 2025 01/19/2021, 01/15/2020, 12/25/2018, Additional history exists DTaP, Tdap and Td Vaccines (2 - Td or Tdap) 07/26/2025 07/27/2015 Pneumococcal Vaccine: 50+ Years Completed 11/30/2017, 02/08/2015 Zoster Vaccines Completed 04/19/2018, 11/14, 07/27/2015 Hepatitis A Vaccines Aged Out No long er eligible based on patient's age to complete this topic Meningococcal B Vaccine Aged Out No l [...] - 6.0 % 08/23/2015 2:46 PM CDT [facility] ESTIMATED AVG GLUCOSE 157 MG/DL 08/23/2015 2:46 PM CDT [facility] 08/23/2015 2:17 PM CDT 08/23/2015 2:18 PM CDT us Generic Conversion Md [facility] Final R esult [facility] [place] [address], [id number] from Last 3 Months or Most Recently Relevant to Health Maintenance Insurance MEDICARE [facility] Advance Directives Documents on File Type Date Recorded Patient Sports Complex Attendant Expl anation Power of Geothermal Technician 01/24/2022 11:57 AM Miladys Mendes, [facility]-spouse; Yared William Mendes, 1st alternate [facility]-son; Kaylee Tao (Vaughn) Gracy, 2nd alternate [facility]-daughter; Advance Directives and Living Will 01/24/2022 11:55 AM [place] DE[place]AR[place] Advance Directives and Living Will 10/04/2016 LIVING WILL Advance Directives and Living Will 10/04/2016 SHORT FORM POWER OF FLAG FOOTBALL COACH Advance Directives and Living Will 10/04/2015 LIVING WILL Advance Directives and Living Will 10/04/2015 SHORT FORM POWER OF FLAG FOOTBALL COACH Advance Directives and Living Will 08/31/2015 LIVING WILL Advance Directives and Living Will 08/31/2015 SHORT FORM POWER OF FLAG FOOTBALL COACH Advance Directives and Living Will 08/23/2015 LIVING WILL Healthcare Agents on File Name Relationship Healthcare Agent Relationship Communication Katelin Mendes ([facility]) Spouse Health Care Agent Yared Mendes Son First Alternat e Health Care Agent Kaylee Tao ([place]augh[place]) Gracy Daughter Second Alternate Health Care Agent Care Teams Patient Monitor Relationship Specialty Start Date End Date Li Tay MD [address] [place] [phone] PCP - General INTERNAL MEDICINE 10/11/15 Bull Sanches MD [address] [place] [address] [place] Support Engineer CARDIOVASCULAR DISEASE 10/11/15 Marta Davenport MD [address] [place] [phone] INTERVENTIONAL CARDIOLOGY 11/06/23
--- OUTSIDE RECORDS SUMMARY | 2025-04-14 08:25 | XMS_ITS | Encounter Summary ---
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
== END 2025-04-14 08:19 | disposition home or self-care (01) ==
PROVIDERS: PCP Internal Medicine; Visit Provider Internal Medicine
DX: R91.1 Solitary pulmonary nodule (principal)
CPT/HCPCS: 71250